=== PATIENT | male | born 1955 | race Caucasian/White ===

== ENCOUNTER → 2018-03-04 | Outpatient (CLI) | payer OTHER | LOC: M LRY 09:48 | DX: S22.32XA Fracture of one rib, left side, initial encounter for closed fracture (principal); R07.81 Pleurodynia; X58.XXXA Exposure to other specified factors, initial encounter; Y92.9 Unspecified place or not applicable | CPT/HCPCS: 71046 ==

== ENCOUNTER → 2018-07-24 | Outpatient (CLI) | payer OTHER ==
--- NOTE | 2018-07-24 14:42 | REP ---
LUMBAR SPINE, FOUR VIEWS: HISTORY: Radiculopathy. There is no acute fracture. There is an old compression fracture at the L5 vertebral body with mild height loss. The lumbar intervertebral discs are decreased in height consistent with disc degeneration. Osteophytes are present throughout the lumbar spine. There is narrowing of the L4-5 and L5-S1 facet joints. There is sclerosis of the L3-4 through L5-S1 facets. There are 3 mm of grade 1 spondylolisthesis of L4 on L5. There is scoliosis convex to the right. IMPRESSION: Degenerative change as described above. Electronically Signed by Charly Cummings MD 07/24/2018 02:52 P
== END ==
LOC: M RAD 12:37
DX: M54.5 Low back pain (principal)

== ENCOUNTER 2019-06-29 11:01 | Emergency (ER) | payer MEDICARE, OTHER ==
[~2019-06-29] VITALS: Ht 175.3 cm; Wt 96.2 kg
[2019-06-29 11:03] VITALS: BP 170/92
[2019-06-29] MEDS ORDERED: METH36TA5 PO (12:23)
[2019-06-29] MEDS ORDERED: SIMV20TA22 PO (12:23)
[2019-06-29] MEDS ORDERED: BASA100I SQ (12:23)
[2019-06-29] MEDS ORDERED: HYDR-3713 PO (12:23)
[2019-06-29] MEDS ORDERED: LISI-538 PO (12:23)
[2019-06-29] MEDS ORDERED: BUPR300T34 PO (12:23)
[2019-06-29] MEDS ORDERED: ARTISOL2 OP (12:23)
[2019-06-29] MEDS ORDERED: VICT18IN2 SQ (12:23)
[2019-06-29] MEDS ORDERED: TRAZ-252 PO (12:23)
[2019-06-29 12:28] LABS: VENOUS PH 7.398 UNITS (7.330-7.430)
[2019-06-29 12:29] LABS: VENOUS HCO3 26.2 MEQ/L (23.0-27.0); VENOUS O2 SATURATION 75.8 % (60.0-80.0); VENOUS PARTIAL PRESSURE CO2 43.4 mmHg (38.0-50.0); VENOUS PARTIAL PRESSURE O2 39.6 mmHg (30.0-50.0); VENOUS STANDARD HCO3 24.7 MEQ/L; VENOUS TOTAL CO2 27.5 MEQ/L (24.0-28.0)
[2019-06-29] MEDS ORDERED: IPRATROPIUM 0.5MG/ALBUTEROL 2.5MG INH SOL UD 3ML (DUONEB)(J7620) NEB SCH (12:30)
[2019-06-29 12:31] LABS: BASO # 0.1 10^3/uL (0.0-0.2); BASO % 1.3 % (0.0-1.0); EOS # 0.2 10^3/uL (0.0-0.5); EOS % 3.7 % (0.0-3.0); HEMATOCRIT 43.6 % (42.0-52.0); HEMOGLOBIN 15.9 g/dl (13.5-17.5); MEAN CORPUSCULAR HEMOGLOBIN 32.4 pg (27.0-33.0); MEAN CORPUSCULAR HGB CONC 36.5 g/dl (32.0-36.5); MONO # 0.6 10^3/uL (0.0-0.8); MONO % 10.3 % (0.0-5.0); NEUTROPHILS # 3.2 10^3/uL (1.5-8.5); NEUTROPHILS % 52.2 % (36.0-66.0); PLATELET COUNT, AUTOMATED 257 10^3/uL (150-450); WHITE BLOOD COUNT 6.2 10^3/uL (4.0-10.0)
[2019-06-29 13:17] LABS: ALBUMIN 3.4 GM/DL (3.2-5.2); ALT/SGPT 40 U/L (12-78); BILIRUBIN,DIRECT < 0.1 MG/DL (0.0-0.2); BILIRUBIN,TOTAL 0.5 MG/DL (0.2-1.0); BLOOD UREA NITROGEN 13 MG/DL (7-18); CALCIUM LEVEL 9.5 MG/DL (8.8-10.2); CARBON DIOXIDE LEVEL 28 MEQ/L (21-32); CHLORIDE LEVEL 96 MEQ/L (98-107); CK-MB VALUE MASS 9.8 NG/ML (<3.6); CPK CREATINE PHOSPHOKINASE 372 U/L (39-308); CREATININE FOR GFR 0.97 MG/DL (0.70-1.30); GLOMERULAR FILTRATION RATE > 60.0 (>49); GLUCOSE, FASTING 424 MG/DL (70-100); MB/CK RELATIVE INDEX 2.63 (< OR =4); NT-PRO BNP 64 PG/ML (<125); POTASSIUM SERUM 4.5 MEQ/L (3.5-5.1); SODIUM LEVEL 133 MEQ/L (136-145); TOTAL PROTEIN 7.6 GM/DL (6.4-8.2); TROPONIN I < 0.02 NG/ML (< 0.10)
[2019-06-29] MEDS ORDERED: HumuLIN R (REGULAR) INSULIN (NovoLIN R) **100U/ML** PER UNIT IV ONE (13:30)
--- NOTE | 2019-06-30 08:03 | ECGEPIP ---
[facility] - ED Test Date: 2019-06-29 Pat Name: LEROY SANCHEZ Department: Room: - Gender: Male Administrative Secretary: ariadna : 1955 Requested By: Sandie Cabrera Order Number: [id number] Reading MD: Sandie Cabrera Measurements Intervals [place] Rate: 75 P: 11 IN: 142 QRS: -25 QRSD: 106 T: 47 QT: 383 QTc: 430 Interpretive Statements SINUS RHYTHM POSSIBLE LEFT ATRIAL ENLARGEMENT BORDERLINE LEFT AXIS DEVIATION No prior Electronically Signed on 06-30-2019 8:03:02 EST by Sandie Cabrera
== END 2019-06-29 14:06 | disposition left against medical advice (07) ==
LOC: M ED 11:01
DX: E16.2 Hypoglycemia, unspecified (principal); R94.31 Abnormal electrocardiogram [ECG] [EKG]; E11.9 Type 2 diabetes mellitus without complications; I10 Essential (primary) hypertension; E78.5 Hyperlipidemia, unspecified; Z88.9 Allergy status to unspecified drugs, medicaments and biological substances; Z79.4 Long term (current) use of insulin; Z79.83 Long term (current) use of bisphosphonates; Z79.899 Other long term (current) drug therapy

== ENCOUNTER 2019-06-29 22:43 | Emergency (ER) | payer MEDICARE ==
[~2019-06-29] VITALS: Ht 175.3 cm; Wt 95.9 kg
[~2019-06-29 22:43] MED LIST: ARTISOL2 OP; BASA100I SQ; BUPR300T34 PO; HYDR-3713 PO; LISI-538 PO; METH36TA5 PO; SIMV20TA22 PO; TRAZ-252 PO; VICT18IN2 SQ
[2019-06-29] MEDS ORDERED: LORazepam 2 MG/ML VIAL (J2060) IV STA (23:28)
[2019-06-29] MEDS ORDERED: NS 500 ML IV ONE (23:30)
[2019-06-29 23:44] LABS: BASO # 0.1 10^3/uL (0.0-0.2); BASO % 1.3 % (0.0-1.0); EOS # 0.2 10^3/uL (0.0-0.5); EOS % 2.4 % (0.0-3.0); HEMATOCRIT 43.5 % (42.0-52.0); HEMOGLOBIN 15.5 g/dl (13.5-17.5); LYMPH # 2.9 10^3/uL (1.5-5.0); LYMPH % 37.9 % (24.0-44.0); MEAN CORPUSCULAR HEMOGLOBIN 32.2 pg (27.0-33.0); MEAN CORPUSCULAR HGB CONC 35.6 g/dl (32.0-36.5); MEAN CORPUSCULAR VOLUME 90.2 fl (80.0-96.0); MONO # 0.9 10^3/uL (0.0-0.8); MONO % 11.2 % (0.0-5.0); NEUTROPHILS # 3.6 10^3/uL (1.5-8.5); NEUTROPHILS % 46.8 % (36.0-66.0); PLATELET COUNT, AUTOMATED 263 10^3/uL (150-450); RED BLOOD COUNT 4.82 10^6/uL (4.30-6.10); WHITE BLOOD COUNT 7.8 10^3/uL (4.0-10.0)
[2019-06-29] MEDS ORDERED: ISOVUE-370 76% 100ML VIAL (Q9967) As Ordered ONE (23:53)
[2019-06-30 00:21] LABS: CK-MB VALUE MASS 13.2 NG/ML (<3.6); CPK CREATINE PHOSPHOKINASE 427 U/L (39-308); MB/CK RELATIVE INDEX 3.09 (< OR =4); NT-PRO BNP 59 PG/ML (<125); THYROXINE (T4) 9.2 UG/DL (4.5-12.0); TROPONIN I < 0.02 NG/ML (< 0.10)
--- NOTE | 2019-06-30 00:57 | REPVR ---
PROCEDURE INFORMATION: Exam: CT Angiography Chest With Contrast Exam date and time: 06/29/2019 11:24 PM Age: 63 years old Clinical indication: Shortness of breath; Additional info: SOB; Bloody sputum TECHNIQUE: Imaging protocol: Computed tomographic angiography of the chest with intravenous contrast. 3D rendering: MIP and/or 3D reconstructed images were created by the technologist. Radiation optimization: All CT scans at this facility use at least one of these dose optimization techniques: automated exposure control; mA and/or kV adjustment per patient size (includes targeted exams where dose is matched to clinical indication); or iterative reconstruction. Contrast material: ISO; Contrast volume: 75 ml; Contrast route: AC; COMPARISON: CR RIBS UNILAT WITHOUT PA CHEST 03/04/2018 9:52 AM FINDINGS: Pulmonary arteries: Suboptimal pulmonary artery contrast opacification limits exam. Aorta: Unremarkable. No aortic aneurysm. No aortic dissection. Lungs: Unremarkable. No consolidation. No masses. Pleural space: Unremarkable. No pneumothorax. No pleural effusion. Heart: Mild coronary artery atherosclerotic disease is present. Normal heart size. Liver: The liver is low attenuation indicating hepatic steatosis. Lymph nodes: Unremarkable. No enlarged lymph nodes. Bones/joints: Old lower thoracic vertebral body compression fracture and multilevel degenerative changes. Soft tissues: Unremarkable. IMPRESSION: 1. Suboptimal pulmonary artery contrast opacification. 2. No acute findings. 3. Coronary artery disease. 4. Hepatic steatosis. Electronically signed by: Alex Harman On 06/30/2019 00:57:17 AM
[2019-06-30 02:49] VITALS: BP 134/85
--- NOTE | 2019-06-30 08:16 | ECGEPIP ---
[facility] - ED Test Date: 2019-06-29 Pat Name: LEROY SANCHEZ Department: Room: - Gender: Male Sales Strategy Manager: : 1955 Requested By: BITA MISTRY Order Number: [id number] Reading MD: Sandie Cabrera Measurements Intervals [place] Rate: 75 P: 12 [place]: 140 QRS: -20 QRSD: 110 T: 44 QT: 386 QTc: 433 Interpretive Statements SINUS RHYTHM POSSIBLE LEFT ATRIAL ENLARGEMENT SIMILAR 06/29/19 Electronically Signed on 06-30-2019 8:15:58 EST by Sandie Cabrera
--- NOTE | 2019-06-30 10:56 | ED PDOC ---
Post-Departure Follow-Up dr marie faxed formal report of cta chest for fu Colton Chase MD Jun 30, 2019 10:56
== END 2019-06-30 02:51 | disposition home or self-care (01) ==
LOC: M ED 22:43
DX: J20.9 Acute bronchitis, unspecified (principal); R73.9 Hyperglycemia, unspecified; I25.10 Atherosclerotic heart disease of native coronary artery without angina pectoris; I28.8 Other diseases of pulmonary vessels; K76.0 Fatty (change of) liver, not elsewhere classified; I10 Essential (primary) hypertension; F33.9 Major depressive disorder, recurrent, unspecified; Z88.9 Allergy status to unspecified drugs, medicaments and biological substances; Z79.4 Long term (current) use of insulin; Z79.84 Long term (current) use of oral hypoglycemic drugs; Z79.899 Other long term (current) drug therapy
CPT/HCPCS: 71275; 80047; 82550; 82553; 83880; 84436; 84443; 84484; 85025; 93005; 96361; 96374; 99284; J2060; Q9967

== ENCOUNTER 2020-12-26 21:02 | Day surgery (SDC) | payer MEDICARE, MEDICAID, OTHER ==
[~2020-12-26] VITALS: Ht 175.3 cm; Wt 87.9 kg
[~2020-12-26 21:02] MED LIST changes: -BUPR300T34 PO; +BUPR300T92 PO; -LISI-538 PO; +LISI20TA33 PO; +VICT18IN2 SC; -VICT18IN2 SQ
[2020-12-26] MEDS ORDERED: HUMA100I5 SC (21:14)
[2020-12-26] MEDS ORDERED: LANTINJ4 SC (21:14)
[2020-12-26 22:56] LABS: BASO % 0.3 % (0.0-1.0); EOS % 0.3 % (0.0-3.0); HEMATOCRIT 44.5 % (42.0-52.0); LYMPH # 1.1 10^3/uL (1.5-5.0); LYMPH % 9.2 % (24.0-44.0); MEAN CORPUSCULAR HEMOGLOBIN 32.6 pg (27.0-33.0); MEAN CORPUSCULAR VOLUME 90.6 fl (80.0-96.0); MONO # 1.2 10^3/uL (0.0-0.8); NEUTROPHILS # 9.6 10^3/uL (1.5-8.5); NEUTROPHILS % 79.5 % (36.0-66.0); PLATELET COUNT, AUTOMATED 206 10^3/uL (150-450); RED BLOOD COUNT 4.91 10^6/uL (4.30-6.10)
[2020-12-26] MEDS ORDERED: NS 1,000 ML IV ONE (23:05)
[2020-12-26] MEDS ORDERED: MORPHINE 4 MG/ML 1ML VIAL/SYRINGE (J2270) IV ONE (23:05)
[2020-12-26 23:19] LABS: ALBUMIN 3.3 GM/DL (3.2-5.2); BILIRUBIN,DIRECT 0.3 MG/DL (0.0-0.2); BILIRUBIN,TOTAL 1.5 MG/DL (0.2-1.0); TOTAL PROTEIN 6.7 GM/DL (6.4-8.2)
[2020-12-27] MEDS ORDERED: ISOVUE-370 76% 100ML VIAL As Ordered ONE (00:44)
--- NOTE | 2020-12-27 02:31 | REPVR ---
PROCEDURE INFORMATION: Exam: CT Abdomen And Pelvis With Contrast Exam date and time: 12/26/2020 11:02 PM Age: 65 years old Clinical indication: Abdominal pain; Localized; Lower; Additional info: Lower abd pain, llq to rlq TECHNIQUE: Imaging protocol: Computed tomography of the abdomen and pelvis with contrast. Radiation optimization: All CT scans at this facility use at least one of these dose optimization techniques: automated exposure control; mA and/or kV adjustment per patient size (includes targeted exams where dose is matched to clinical indication); or iterative reconstruction. Contrast material: ISO; Contrast volume: 100 ml; Contrast route: INTRAVENOUS (IV); COMPARISON: CR Spine. Lumbosacral, complete 07/24/2018 1:14 PM FINDINGS: LUNG BASES: Mild bibasal and dependent atelectasis. VASCULAR: Visualized cardiac size is at the upper end of normal. No abdominoaortic aneurysm, dissection, or retroperitoneal hematoma. There is calcified and noncalcified atherosclerotic plaque. PERITONEAL : No free air or free fluid. GI: No hiatal hernia. The distal esophagus and stomach are not sufficiently distended to evaluate wall thickening. Non-specific fluid-filled loops of small bowel seen. No appearance of small bowel obstruction. Small nonspecific mesenteric lymph nodes are noted. Scattered fecal material and gas within portions of the colon. No evidence of acute diverticulitis. There is focal wall thickening at the cecal apex. The appendix is slightly dilated above normal limits at 12.8 mm. There is mild appendiceal wall thickening and mucosal enhancement. A 7 mm calcification is seen at the appendiceal orifice. There is periappendiceal inflammatory stranding and adjacent conal fascial thickening or trace amount of fluid. Findings are consistent with acute appendicitis. No evidence of perforation/free air or drainable abscess. HEPATOBILIARY, PANCREAS, SPLEEN: Hepatic length is 18.9 cm. There is slight heterogeneity of hepatic parenchyma. There is evidence of hepatic steatosis. Distended gallbladder measuring 12.2 cm in length. Clinical correlation is advised. No calcified gallstones or biliary dilation seen. If there is suspicion for acute or chronic cholecystitis, consider ultrasound or HIDA scan/CCK respectively. No pancreatic inflammation. Spleen not enlarged. ADRENALS, KIDNEYS, BLADDER, RETROPERITONEAL: Adrenals within normal limits. No hydronephrosis. Symmetric renal enhancement. Mild nonspecific perinephric stranding. Hypodense renal parenchymal and parapelvic lesions noted, too small to further characterize but likely cysts. Consistent with the [employer]'s Incidental Findings Committee white paper (J Am Alan Radiol 2018): Any incidental cystic renal lesion classified in this report as too small to characterize or simple appearing is likely a benign cyst. No follow-up imaging is neccesary for these lesions per consensus recommendations based on imaging criteria if there is average risk of renal malignancy. The urinary bladder appears slightly thick-walled anteriorly. This could be artifactual. Clinical correlation and follow-up is advised. Slightly heterogeneous mildly enlarged prostate impressing along the base of the urinary bladder. Clinical follow-up is advised. Penile calcifications incidentally noted. No retroperitoneal lymphadenopathy by size criteria. MUSCULOSKELETAL: Tiny fat containing umbilical hernia. Fat containing inguinal hernias. Degenerative changes of the spine. Moderate central compression fracture deformity at L5 appears slightly greater than on the prior study. Clinical correlation with any acute symptoms. There is mild scoliosis. Degenerative changes of the pelvis noted. IMPRESSION: Findings are consistent with mild uncomplicated acute appendicitis. This is discussed above in detail. Distended gallbladder but no other CT evidence for acute cholecystitis. Findings discussed above. Mildly enlarged prostate. Clinical follow-up is advised. Other incidental findings discussed above. Electronically signed by: Burak Segovia On 12/27/2020 02:31:13 AM
[2020-12-27] MEDS ORDERED: PIPERACILLIN/TAZOBACTAM SOD 3.375 GM in D5W MINI-BAG PLUS 50 ML IV ONE (02:40)
[2020-12-27] MEDS ORDERED: B-COTAB4 PO (02:48)
[2020-12-27] MEDS ORDERED: POTA99TA14 PO (02:48)
[2020-12-27] MEDS ORDERED: POLY1.4S OU (02:48)
[2020-12-27] MEDS ORDERED: MUPI2OI EXT (02:48)
[2020-12-27] MEDS ORDERED: ERGO500029 PO (02:48)
[2020-12-27] MEDS ORDERED: JUBL1SOL EXT (02:48)
[2020-12-27] MEDS ORDERED: MELA5TAB47 PO (02:48)
[2020-12-27 03:21] LABS: RSV AMPLIFICATION NEGATIVE (NEGATIVE)
[2020-12-27] MEDS ORDERED: KETOROLAC 30 MG/ML 1ML VIAL IV PRN (03:40)
[2020-12-27] MEDS ORDERED: GLUCOSE 4GM CHEW TABLET PO PRN (03:40)
[2020-12-27] MEDS ORDERED: ACETAMINOPHEN TAB 650MG DOSE (2X325MG) PO PRN (03:40)
[2020-12-27] MEDS ORDERED: ONDANSETRON 4MG/2ML VIAL IV PRN (03:40)
[2020-12-27] MEDS ORDERED: MORPHINE 2 MG/ML 1ML VIAL (J2270) IV PRN (03:40)
[2020-12-27] MEDS ORDERED: GLUCAGON INJ 1MG VIAL SC PRN (03:40)
[2020-12-27] MEDS ORDERED: DEXTROSE 50% 50 ML SYRINGE IV PRN (03:40)
[2020-12-27] MEDS: KCL 20MEQ IN D5/0.45NS 1000ML 1,000 ML IV SCH ×2 (05:27→14:23)
[2020-12-27] MEDS: HumaLOG INSULIN (NovoLOG) PER UNIT SC SCH ×2 (07:30→12:35)
[2020-12-27] MEDS: AMPICILLIN SOD/SULBACTAM SOD 3 GM in D5W MINI-BAG PLUS 100 ML IV SCH ×2 (08:42→15:34)
[2020-12-27 08:56] VITALS: BP 152/86
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
[2020-12-27] MEDS ORDERED: HOME MED LIST COMPLETE! XX SCH (13:00)
[2020-12-27 14:50] VITALS: BP 125/76
[2020-12-27] MEDS ORDERED: LIDOCAINE 1% SDV 30ML VIAL As Ordered ONE (16:36)
[2020-12-27] MEDS ORDERED: BUPIVACAINE HCL 0.25% 30ML VIAL As Ordered ONE (16:37)
--- NOTE | 2020-12-27 17:19 | IPNPDOC ---
Text Note Date of Service The patient was seen on 12/27/20. NOTE I was informed that the patient wishes to leave AMA and could not wait for the operating room so I spoke to the patient and informed him that he is next in line for the surgery. Unfortunately there has been a few add on surgeries in the schedule and OR has been busy today. Patient is determined to go home,e at and feed his cats. I discussed with him the possible repercussions of not properly treating his appendicitis including worsening, sepsis, abscess and even . Patient wishes to proceed with AMA unfortunately. VS,Fishbone, I+O VS, Fishbone, I+O Laboratory Tests 12/26/20 22:44 Vital Signs Date Time Temp Pulse Resp B/P (MAP) Pulse Ox O2 Delivery O2 Flow Rate FiO2 12/27/20 14:50 98.0 73 16 125/76 (92) 95 Room Air I&O- Last 24 Hours up to 6 AM 12/27/20 06:00 Intake Total 1000 ml Balance 1000 ml YASH DEWITT MD Dec 27, 2020 17:19
== END 2020-12-27 17:15 | disposition left against medical advice (07) ==
LOC: M ED 21:02 → M SDC 21:03 → UNDOADMIN 12-27 03:36 → M ED INP 12-27 03:36 → M SDC 12-27 03:40 → ENRESERV 12-27 13:52 → M SDC 12-27 14:50 → M MSPAV 12-27 14:50 → M ED INP 12-27 14:50 → M MSPAV 12-27 14:50 → M SDC 12-27 17:15 → UNDODISIN 12-27 17:15
PROVIDERS: ATTEND Surgery
DX: K35.80 Unspecified acute appendicitis (principal); Z53.29 Procedure and treatment not carried out because of patient's decision for other reasons; I10 Essential (primary) hypertension; E11.40 Type 2 diabetes mellitus with diabetic neuropathy, unspecified; E78.5 Hyperlipidemia, unspecified; K21.9 Gastro-esophageal reflux disease without esophagitis; Z91.19 Patient's noncompliance with other medical treatment and regimen; G47.30 Sleep apnea, unspecified; F32.9 Major depressive disorder, single episode, unspecified; F41.9 Anxiety disorder, unspecified; F43.10 Post-traumatic stress disorder, unspecified; F17.220 Nicotine dependence, chewing tobacco, uncomplicated; Z79.899 Other long term (current) drug therapy; Z88.8 Allergy status to other drugs, medicaments and biological substances
CPT/HCPCS: 74177; 80047; 80076; 81001; 83605; 83690; 85025; 87631; 96361; 96365; 96367; 96375; 96376; 99285; J1885; J2270; J2543; Q9967

== ENCOUNTER 2023-02-10 08:48 | Day surgery (SDC) | payer MEDICARE ==
[~2023-02-10] VITALS: Ht 175.3 cm; Wt 87.9 kg
[~2023-02-10 08:48] MED LIST changes: +ALPH600C PO; +B-COTAB4 PO; +BSS IRRIG/VANCO(10MG)/TOBRA(5MG)/EPINEPH(1:1000-0.5CC)500ML BAG-ORONLY IR ONE; +CEFUROXIME 1MG/0.1ML INTRACAMERAL INJ As Ordered ONE; +CYCLOPENTOLATE 1% OPHTH SOLN 2ML BTL OD SCH; +ERGO500029 PO; +GABA-282 PO; +HAIR1CHW PO; +HUMA100I5 SC; +JUBL1SOL EXT; +LANTINJ4 SC; +LIDOCAINE 1% SDV 5ML VIAL As Ordered ONE; +LIDOCAINE 3.5 % 1ML OPHTH TOPICAL GEL OU ONE; +MELA5TAB47 PO; +MIDAZOLAM INJ 2MG/2ML VIAL As Ordered ONE; +MUPI2OI EXT; +NAPR220C14 PO; +OFLOXACIN 0.3 % (OCUFLOX) OPTH SOL 5ML OD ONE; +PHENYLEPHRINE 10% OPHTH SOL 5ML OD PRN; +PHENYLEPHRINE 2.5% OPHTH SOL 2ML OD SCH; +POLY1.4S OU; +POTA99TA14 PO; +SIMV40TA20 PO; +THERTAB52 PO; +TROPICAMIDE 1% OPHTH SOLN 15ML OD SCH; +[UNRECOGNIZED DRUG - OTHER]; +fentaNYL 100 MCG/2 ML INJECTION As Ordered ONE
[2023-02-10 11:33] VITALS: BP 139/80; TEMP 96.8; O2SAT 98
== END 2023-02-10 12:00 | disposition home or self-care (01) ==
LOC: M SDC 08:48
PROVIDERS: ATTEND Ophthalmology
DX: H25.11 Age-related nuclear cataract, right eye (principal); I10 Essential (primary) hypertension; E11.9 Type 2 diabetes mellitus without complications; E78.5 Hyperlipidemia, unspecified; F17.220 Nicotine dependence, chewing tobacco, uncomplicated; F41.9 Anxiety disorder, unspecified; F32.A Depression, unspecified; F43.10 Post-traumatic stress disorder, unspecified; Z88.8 Allergy status to other drugs, medicaments and biological substances; G47.33 Obstructive sleep apnea (adult) (pediatric); Z79.4 Long term (current) use of insulin; Z79.899 Other long term (current) drug therapy
CPT/HCPCS: 66984; J0697; J2250; J3010; V2632

== ENCOUNTER → 2023-02-17 | Day surgery (SDC) | payer MEDICARE ==
[~2023-02-17] VITALS: Ht 175.3 cm; Wt 88.6 kg
[~2023-02-17] MED LIST changes: -CYCLOPENTOLATE 1% OPHTH SOLN 2ML BTL OD SCH; +CYCLOPENTOLATE 1% OPHTH SOLN 2ML BTL OS SCH; -OFLOXACIN 0.3 % (OCUFLOX) OPTH SOL 5ML OD ONE; +OFLOXACIN 0.3 % (OCUFLOX) OPTH SOL 5ML OS ONE; -PHENYLEPHRINE 10% OPHTH SOL 5ML OD PRN; +PHENYLEPHRINE 10% OPHTH SOL 5ML OS PRN; -PHENYLEPHRINE 2.5% OPHTH SOL 2ML OD SCH; +PHENYLEPHRINE 2.5% OPHTH SOL 2ML OS SCH; -TROPICAMIDE 1% OPHTH SOLN 15ML OD SCH; +TROPICAMIDE 1% OPHTH SOLN 15ML OS SCH
[2023-02-17 13:55] VITALS: BP 169/90; TEMP 97.8; O2SAT 98
== END | disposition home or self-care (01) ==
LOC: M SDC 11:37
PROVIDERS: ATTEND Ophthalmology
DX: H25.12 Age-related nuclear cataract, left eye (principal); I10 Essential (primary) hypertension; E78.5 Hyperlipidemia, unspecified; E11.9 Type 2 diabetes mellitus without complications; K59.00 Constipation, unspecified; M19.90 Unspecified osteoarthritis, unspecified site; M54.9 Dorsalgia, unspecified; F41.9 Anxiety disorder, unspecified; F32.A Depression, unspecified; F43.10 Post-traumatic stress disorder, unspecified; G47.30 Sleep apnea, unspecified; Z88.8 Allergy status to other drugs, medicaments and biological substances; Z79.4 Long term (current) use of insulin; Z79.899 Other long term (current) drug therapy
CPT/HCPCS: 66984; J0697; J2250; J3010; V2632

== ENCOUNTER → 2024-01-02 | Outpatient (REF) | payer MEDICARE, MEDICAID ==
[~2024-01-02] MED LIST changes: -B-COTAB4 PO; -BSS IRRIG/VANCO(10MG)/TOBRA(5MG)/EPINEPH(1:1000-0.5CC)500ML BAG-ORONLY IR ONE; +BUPR-597 PO; -BUPR300T92 PO; -CEFUROXIME 1MG/0.1ML INTRACAMERAL INJ As Ordered ONE; -CYCLOPENTOLATE 1% OPHTH SOLN 2ML BTL OS SCH; -LIDOCAINE 1% SDV 5ML VIAL As Ordered ONE; -LIDOCAINE 3.5 % 1ML OPHTH TOPICAL GEL OU ONE; -MIDAZOLAM INJ 2MG/2ML VIAL As Ordered ONE; -OFLOXACIN 0.3 % (OCUFLOX) OPTH SOL 5ML OS ONE; -PHENYLEPHRINE 10% OPHTH SOL 5ML OS PRN; -PHENYLEPHRINE 2.5% OPHTH SOL 2ML OS SCH; -TROPICAMIDE 1% OPHTH SOLN 15ML OS SCH; +VITA1TAB78 PO; -fentaNYL 100 MCG/2 ML INJECTION As Ordered ONE
[2024-01-02 18:16] LABS: ALBUMIN 3.4 G/DL (3.2-5.2); BLOOD UREA NITROGEN 17 MG/DL (9-23); CALCIUM LEVEL 9.2 MG/DL (8.3-10.6); CARBON DIOXIDE LEVEL 28 MMOL/L (20-31); CHLORIDE LEVEL 101 MMOL/L (98-107); CREATININE FOR GFR 0.66 MG/DL (0.70-1.30); GLOMERULAR FILTRATION RATE > 60.0 (>49); GLUCOSE, FASTING 291 MG/DL (74-106); PHOSPHORUS LEVEL 2.6 MG/DL (2.4-5.1); POTASSIUM SERUM 4.3 MMOL/L (3.5-5.1); SODIUM LEVEL 136 MMOL/L (136-145)
== END ==
LOC: M LABWUC 16:46 → M LAB REF 16:46
PROVIDERS: ATTEND Physician Assistant
DX: I10 Essential (primary) hypertension (principal); U07.1 COVID-19; Z20.828 Contact with and (suspected) exposure to other viral communicable diseases

== ENCOUNTER → 2024-08-31 | Outpatient (REF) | payer MEDICARE, MEDICAID ==
[~2024-08-31] MED LIST changes: +DOXY100C3 PO; +GABA-1172 PO; -GABA-282 PO; +PANT40TA29 PO; +SILV40CR TOP; +TIRZ2.5P SQ
[2024-08-31 18:15] LABS: HEMOGLOBIN A1c 9.6 % (4.0-6.0)
== END ==
LOC: M SFHCWOUN 16:29
PROVIDERS: ATTEND Physician Assistant
DX: E11.621 Type 2 diabetes mellitus with foot ulcer (principal)

== ENCOUNTER 2024-09-03 20:48 | Inpatient (IN) | payer MEDICAID, MEDICARE ==
[~2024-09-03] VITALS: Ht 175.3 cm; Wt 84.5 kg
[~2024-09-03 20:48] MED LIST changes: -DOXY100C3 PO; -PANT40TA29 PO; -SILV40CR TOP; -TIRZ2.5P SQ
[2024-09-04] VITALS (7 sets, daily range): BP systolic 108–117; BP diastolic 59–69; TEMP 97.2–97.9; O2SAT 97–100
[2024-09-04 03:57] LABS: BASO % 0.1 % (0.0-1.0); HEMATOCRIT 33.1 % (42.0-52.0); HEMOGLOBIN 11.6 g/dl (13.5-17.5); LYMPH # 1.6 10^3/uL (1.5-5.0); LYMPH % 7.3 % (24.0-44.0); MEAN CORPUSCULAR HEMOGLOBIN 31.2 pg (27.0-33.0); MONO # 1.5 10^3/uL (0.0-0.8); MONO % 7.2 % (2.0-8.0); NEUTROPHILS % 84.6 % (36.0-66.0); PLATELET COUNT, AUTOMATED 308 10^3/uL (150-450); RED BLOOD COUNT 3.72 10^6/uL (4.30-6.10); WHITE BLOOD COUNT 21.3 10^3/uL (4.0-10.0)
[2024-09-04] MEDS ORDERED: ISOVUE-370 76% 100ML VIAL As Ordered ONE (04:11)
[2024-09-04 04:12] LABS: BLOOD UREA NITROGEN 29 MG/DL (9-23); C REACTIVE PROTEIN QUANTITATIV 22.66 MG/DL (<1.0); CALCIUM LEVEL 8.6 MG/DL (8.3-10.6); CARBON DIOXIDE LEVEL 24 MMOL/L (20-31); CHLORIDE LEVEL 93 MMOL/L (98-107); GLOMERULAR FILTRATION RATE > 60.0 (>42); GLUCOSE, FASTING 365 MG/DL (74-106); POTASSIUM SERUM 4.8 MMOL/L (3.5-5.1); SODIUM LEVEL 127 MMOL/L (136-145)
[2024-09-04 04:21] LABS: ERYTHROCYTE SEDIMENTATION RATE 81 mm/hr (0-20)
[2024-09-04 04:22] LABS: PROCALCITONIN 0.73 ng/ml
[2024-09-04 04:24] LABS: INR 1.26; PARTIAL THROMBOPLASTIN TIME 38.1 SECONDS (24.8-34.2); PROTHROMBIN TIME 16.1 SECONDS (12.5-14.5)
[2024-09-04] MEDS ORDERED: VANCOMYCIN HCL 1,500 MG in IV FLUID PLACE HOLDER 1 EA IV ONE (04:50)
[2024-09-04] MEDS: PIPERACILLIN/TAZOBACTAM SOD 4.5 GM in DEXTROSE 5% (D5W) ADV/MINI-BAG 50 ML IV ONE (05:37)
[2024-09-04] MEDS: VANCOMYCIN HCL 1,500 MG, VIAL MATE ADAPTER 1 EACH in NS 500 ML IV ONE (06:21)
[2024-09-04] MEDS: HumuLIN R (REGULAR) INSULIN (NovoLIN R) **100U/ML** PER UNIT IV ONE (08:00)
[2024-09-04] MEDS ORDERED: fentaNYL 250 MCG/5 ML INJECTION As Ordered ONE (08:01)
[2024-09-04] MEDS ORDERED: propofoL 200 MG/20 ML VIAL As Ordered ONE (08:02)
[2024-09-04] MEDS ORDERED: MIDAZOLAM INJ 2MG/2ML VIAL As Ordered ONE (08:02)
[2024-09-04] MEDS ORDERED: ROCURONIUM BROMIDE 50MG/5ML VIAL As Ordered ONE (08:02)
[2024-09-04] MEDS ORDERED: LIDOCAINE 2% 100MG/5ML SDV (FOR ANES.) As Ordered ONE (08:02)
[2024-09-04] MEDS: NS (Normal Saline) 0.9% 1,000 ML IV ONE (08:44)
[2024-09-04] MEDS ORDERED: diphenhydrAMINE 50MG/ML VIAL IV PRN (08:50)
[2024-09-04] MEDS ORDERED: ONDANSETRON 4MG 2ML VIAL IV PRN (08:50)
[2024-09-04] MEDS ORDERED: fentaNYL 100 MCG/2 ML INJECTION IV PRN (08:50)
[2024-09-04] MEDS ORDERED: oxyCODONE 5MG TAB PO PRN (08:50)
[2024-09-04] MEDS ORDERED: GLUCOSE 4 GM CHEW PO PRN (08:50)
[2024-09-04] MEDS ORDERED: GLUCAGON INJ 1MG VIAL SC PRN (08:50)
[2024-09-04] MEDS: CLINDAMYCIN 900MG/50ML PREMIX BAG As Ordered ONE (09:29)
[2024-09-04] MEDS ORDERED: ACETAMINOPHEN 1000MG/100ML IV BAG As Ordered ONE (09:41)
[2024-09-04] MEDS ORDERED: ONDANSETRON 4MG 2ML VIAL As Ordered ONE (09:42)
[2024-09-04] MEDS ORDERED: KETOROLAC 60MG 2ML VIAL As Ordered ONE (10:01)
[2024-09-04] MEDS ORDERED: SUGAMMADEX SODIUM 500 MG/5 ML VIAL (BRIDION) As Ordered ONE (10:01)
[2024-09-04] MEDS: INSULIN LISPRO (NovoLOG) PER UNIT SC PRN (10:29)
[2024-09-04] MEDS: HYDROMORPHONE HCL 0.5 MG/ 0.5 ML SYRINGE IV PRN (10:48)
[2024-09-04] MEDS: ALBUTEROL SULFATE 2.5MG/0.5ML INH NEB SOLN INH ONE (12:01)
[2024-09-04] MEDS ORDERED: VANCOMYCIN HCL 1,000 MG, VIAL MATE ADAPTER 1 EACH in NS 250 ML IV SCH (12:55)
[2024-09-04 14:03] LABS: HEMATOCRIT 29.1 % (42.0-52.0); HEMOGLOBIN 10.3 g/dl (13.5-17.5); MEAN CORPUSCULAR HEMOGLOBIN 31.2 pg (27.0-33.0); MEAN CORPUSCULAR HGB CONC 35.4 g/dl (32.0-36.5); MEAN CORPUSCULAR VOLUME 88.2 fl (80.0-96.0); PLATELET COUNT, AUTOMATED 256 10^3/uL (150-450); WHITE BLOOD COUNT 15.9 10^3/uL (4.0-10.0)
[2024-09-04] MEDS: PIPERACILLIN/TAZOBACTAM SOD 4.5 GM in DEXTROSE 5% (D5W) ADV/MINI-BAG 50 ML IV SCH (14:22)
[2024-09-04 14:28] LABS: BLOOD UREA NITROGEN 27 MG/DL (9-23); CARBON DIOXIDE LEVEL 26 MMOL/L (20-31); CHLORIDE LEVEL 99 MMOL/L (98-107); CREATININE FOR GFR 0.85 MG/DL (0.70-1.30); GLOMERULAR FILTRATION RATE > 60.0 (>42); GLUCOSE, FASTING 223 MG/DL (74-106); POTASSIUM SERUM 4.8 MMOL/L (3.5-5.1); SODIUM LEVEL 130 MMOL/L (136-145)
[2024-09-04] MEDS ORDERED: DOXY100C3 PO (15:02)
[2024-09-04] MEDS ORDERED: SILV40CR TOP (15:02)
[2024-09-04] MEDS ORDERED: PANT40TA29 PO (15:02)
[2024-09-04] MEDS ORDERED: TIRZ2.5P SQ (15:02)
[2024-09-04] MEDS ORDERED: HOME MED LIST COMPLETE! XX SCH (15:15)
[2024-09-04] MEDS: VANCOMYCIN HCL 750 MG, VIAL MATE ADAPTER 1 EACH in NS 250 ML IV SCH (15:27)
[2024-09-04] MEDS: INSULIN LISPRO (NovoLOG) PER UNIT SC SCH ×2 (17:22→21:21)
[2024-09-04] MEDS ORDERED: SENNA 8.6 MG TAB (SENOKOT) PO PRN (17:30)
[2024-09-04] MEDS ORDERED: MIRALAX *UNIT DOSE* 17GM PACKET PO PRN (17:30)
[2024-09-04] MEDS: LEVEMIR (INSULIN DETEMIR) 1 UNITS/0.01ML SC SCH (21:21)
[2024-09-04] MEDS: SIMVASTATIN 40 MG TAB PO SCH (21:21)
[2024-09-05 00:10] VITALS: BP 124/67; TEMP 97.3; O2SAT 97
[2024-09-05 04:10] VITALS: BP 120/67; TEMP 97.3; O2SAT 96
[2024-09-05 07:07] LABS: HEMATOCRIT 28.9 % (42.0-52.0); MEAN CORPUSCULAR HEMOGLOBIN 30.5 pg (27.0-33.0); MEAN CORPUSCULAR HGB CONC 34.6 g/dl (32.0-36.5); MEAN CORPUSCULAR VOLUME 88.1 fl (80.0-96.0); PLATELET COUNT, AUTOMATED 285 10^3/uL (150-450); RED BLOOD COUNT 3.28 10^6/uL (4.30-6.10); WHITE BLOOD COUNT 11.5 10^3/uL (4.0-10.0)
[2024-09-05 07:34] LABS: BLOOD UREA NITROGEN 27 MG/DL (9-23); CARBON DIOXIDE LEVEL 27 MMOL/L (20-31); CHLORIDE LEVEL 98 MMOL/L (98-107); GLOMERULAR FILTRATION RATE > 60.0 (>42); GLUCOSE, FASTING 311 MG/DL (74-106); POTASSIUM SERUM 4.6 MMOL/L (3.5-5.1); SODIUM LEVEL 132 MMOL/L (136-145)
[2024-09-05 08:00] VITALS: BP 121/68; TEMP 97.7; O2SAT 98
[2024-09-05] MEDS: GABAPENTIN 300 MG CAP PO SCH (08:27)
[2024-09-05] MEDS: PANTOPRAZOLE 40MG TAB (PROTONIX) PO SCH (08:27)
[2024-09-05 12:00] VITALS: BP 120/68; TEMP 97.2; O2SAT 93
[2024-09-05 16:00] VITALS: BP 123/68; TEMP 97.7; O2SAT 97
[2024-09-05] MEDS: ACETAMINOPHEN 500 MG TAB PO PRN (17:19)
[2024-09-05 19:54] VITALS: BP 121/67; TEMP 98; O2SAT 96
[2024-09-06] VITALS (9 sets, daily range): BP systolic 123–141; BP diastolic 66–88; TEMP 97.5–98.2; O2SAT 88–98
[2024-09-06 07:43] LABS: HEMATOCRIT 33.1 % (42.0-52.0); HEMOGLOBIN 11.2 g/dl (13.5-17.5); MEAN CORPUSCULAR HEMOGLOBIN 31.2 pg (27.0-33.0); MEAN CORPUSCULAR HGB CONC 33.8 g/dl (32.0-36.5); MEAN CORPUSCULAR VOLUME 92.2 fl (80.0-96.0); PLATELET COUNT, AUTOMATED 303 10^3/uL (150-450); RED BLOOD COUNT 3.59 10^6/uL (4.30-6.10); WHITE BLOOD COUNT 8.9 10^3/uL (4.0-10.0)
[2024-09-06 08:07] LABS: BLOOD UREA NITROGEN 19 MG/DL (9-23); C REACTIVE PROTEIN QUANTITATIV 6.15 MG/DL (<1.0); CALCIUM LEVEL 7.7 MG/DL (8.3-10.6); CARBON DIOXIDE LEVEL 26 MMOL/L (20-31); CHLORIDE LEVEL 105 MMOL/L (98-107); GLOMERULAR FILTRATION RATE > 60.0 (>42); GLUCOSE, FASTING 158 MG/DL (74-106); POTASSIUM SERUM 4.7 MMOL/L (3.5-5.1); SODIUM LEVEL 138 MMOL/L (136-145)
[2024-09-06] MEDS: LEVEMIR (INSULIN DETEMIR) 1 UNITS/0.01ML SC ONE (11:26)
[2024-09-06] MEDS ORDERED: LanTUS (INSULIN GLARGINE INJ) 1 UNITS/0.01 ML SC SCH (21:00)
[2024-09-06] MEDS ORDERED: LEVEMIR (INSULIN DETEMIR) 1 UNITS/0.01ML SC SCH (21:00)
[2024-09-07] VITALS (12 sets, daily range): BP systolic 136–156; BP diastolic 81–88; TEMP 96.8–97.7; O2SAT 88–97
[2024-09-07 05:56] LABS: HEMATOCRIT 32.2 % (42.0-52.0); HEMOGLOBIN 10.7 g/dl (13.5-17.5); MEAN CORPUSCULAR HEMOGLOBIN 30.2 pg (27.0-33.0); MEAN CORPUSCULAR HGB CONC 33.2 g/dl (32.0-36.5); PLATELET COUNT, AUTOMATED 345 10^3/uL (150-450); RED BLOOD COUNT 3.54 10^6/uL (4.30-6.10)
[2024-09-07 06:29] LABS: BLOOD UREA NITROGEN 14 MG/DL (9-23); C REACTIVE PROTEIN QUANTITATIV 3.57 MG/DL (<1.0); CALCIUM LEVEL 7.5 MG/DL (8.3-10.6); CARBON DIOXIDE LEVEL 28 MMOL/L (20-31); CHLORIDE LEVEL 103 MMOL/L (98-107); CREATININE FOR GFR 0.71 MG/DL (0.70-1.30); GLOMERULAR FILTRATION RATE > 60.0 (>42); GLUCOSE, FASTING 310 MG/DL (74-106); POTASSIUM SERUM 4.6 MMOL/L (3.5-5.1); SODIUM LEVEL 138 MMOL/L (136-145)
[2024-09-07] MEDS: LanTUS (INSULIN GLARGINE INJ) 1 UNITS/0.01 ML SC SCH (09:29)
[2024-09-08] VITALS (9 sets, daily range): BP systolic 133–156; BP diastolic 66–97; TEMP 97.3–97.9; O2SAT 94–98
[2024-09-08 07:29] LABS: HEMATOCRIT 33.2 % (42.0-52.0); HEMOGLOBIN 11.3 g/dl (13.5-17.5); MEAN CORPUSCULAR HEMOGLOBIN 31.6 pg (27.0-33.0); MEAN CORPUSCULAR VOLUME 92.7 fl (80.0-96.0); PLATELET COUNT, AUTOMATED 356 10^3/uL (150-450); RED BLOOD COUNT 3.58 10^6/uL (4.30-6.10)
[2024-09-08 08:02] LABS: BLOOD UREA NITROGEN 15 MG/DL (9-23); C REACTIVE PROTEIN QUANTITATIV 2.24 MG/DL (<1.0); CALCIUM LEVEL 7.8 MG/DL (8.3-10.6); CARBON DIOXIDE LEVEL 27 MMOL/L (20-31); CHLORIDE LEVEL 104 MMOL/L (98-107); CREATININE FOR GFR 0.65 MG/DL (0.70-1.30); GLOMERULAR FILTRATION RATE > 60.0 (>42); GLUCOSE, FASTING 340 MG/DL (74-106); POTASSIUM SERUM 4.7 MMOL/L (3.5-5.1); SODIUM LEVEL 139 MMOL/L (136-145)
[2024-09-08] MEDS: BUPivacaine LIPOSOME/PF 266MG 20ML VIAL (13.3MG/ML)(EXPAREL) As Ordered ONE (16:36)
[2024-09-08] MEDS ORDERED: fentaNYL 100 MCG/2 ML INJECTION As Ordered ONE (16:42)
[2024-09-08] MEDS: TRANEXAMIC ACID 100 MG/ML 10ML VIAL As Ordered ONE (17:20)
[2024-09-08] MEDS ORDERED: HYDROMORPHONE HCL 0.5 MG/ 0.5 ML SYRINGE IV PRN (20:05)
[2024-09-08] MEDS ORDERED: oxyCODONE 5MG TAB PO PRN (20:05)
[2024-09-08] MEDS ORDERED: ONDANSETRON 4MG 2ML VIAL IV PRN (20:05)
[2024-09-08] MEDS ORDERED: fentaNYL 100 MCG/2 ML INJECTION IV PRN (20:05)
[2024-09-08] MEDS: LR 1,000 ML IV SCH ×2 (21:46→21:55)
[2024-09-08] MEDS: oxyCODONE 5MG TAB PO PRN (21:53)
[2024-09-09] VITALS (9 sets, daily range): BP systolic 129–144; BP diastolic 69–83; TEMP 97.5–98.1; O2SAT 92–98
[2024-09-09 07:31] LABS: HEMATOCRIT 31.6 % (42.0-52.0); HEMOGLOBIN 10.5 g/dl (13.5-17.5); MEAN CORPUSCULAR HGB CONC 33.2 g/dl (32.0-36.5); MEAN CORPUSCULAR VOLUME 93.2 fl (80.0-96.0); PLATELET COUNT, AUTOMATED 360 10^3/uL (150-450); RED BLOOD COUNT 3.39 10^6/uL (4.30-6.10); WHITE BLOOD COUNT 16.4 10^3/uL (4.0-10.0)
[2024-09-09 07:59] LABS: BLOOD UREA NITROGEN 18 MG/DL (9-23); C REACTIVE PROTEIN QUANTITATIV 1.67 MG/DL (<1.0); CALCIUM LEVEL 7.8 MG/DL (8.3-10.6); CARBON DIOXIDE LEVEL 27 MMOL/L (20-31); CHLORIDE LEVEL 105 MMOL/L (98-107); CREATININE FOR GFR 0.64 MG/DL (0.70-1.30); GLOMERULAR FILTRATION RATE > 60.0 (>42); GLUCOSE, FASTING 354 MG/DL (74-106); POTASSIUM SERUM 4.6 MMOL/L (3.5-5.1); SODIUM LEVEL 138 MMOL/L (136-145)
[2024-09-09] MEDS: ENOXAPARIN 40MG/0.4ML SYRINGE (J1650 PER 10MG) SC SCH (21:39)
[2024-09-10] VITALS (8 sets, daily range): BP systolic 120–153; BP diastolic 64–96; TEMP 97.3–98.1; O2SAT 85–95
[2024-09-10] MEDS: GABAPENTIN 300 MG CAP PO SCH (01:56)
[2024-09-10] MEDS: METHOCARBAMOL 1,000 MG/10 ML VIAL IV ONE (02:01)
[2024-09-10 06:29] LABS: HEMATOCRIT 30.3 % (42.0-52.0); HEMOGLOBIN 9.9 g/dl (13.5-17.5); MEAN CORPUSCULAR HGB CONC 32.7 g/dl (32.0-36.5); PLATELET COUNT, AUTOMATED 330 10^3/uL (150-450); RED BLOOD COUNT 3.19 10^6/uL (4.30-6.10); WHITE BLOOD COUNT 13.6 10^3/uL (4.0-10.0)
[2024-09-10 06:48] LABS: BLOOD UREA NITROGEN 18 MG/DL (9-23); CALCIUM LEVEL 7.7 MG/DL (8.3-10.6); CARBON DIOXIDE LEVEL 26 MMOL/L (20-31); CHLORIDE LEVEL 107 MMOL/L (98-107); CREATININE FOR GFR 0.71 MG/DL (0.70-1.30); GLOMERULAR FILTRATION RATE > 60.0 (>42); GLUCOSE, FASTING 247 MG/DL (74-106); POTASSIUM SERUM 4.7 MMOL/L (3.5-5.1); SODIUM LEVEL 140 MMOL/L (136-145)
[2024-09-10] MEDS: methocarbamoL 500 MG TAB PO PRN (09:26)
[2024-09-10] MEDS: PERCOCET 5MG/325MG TAB PO PRN (15:07)
[2024-09-11 03:59] VITALS: BP 150/97; TEMP 98.1; O2SAT 96
[2024-09-11 06:04] LABS: MEAN CORPUSCULAR HEMOGLOBIN 30.8 pg (27.0-33.0); MEAN CORPUSCULAR HGB CONC 32.3 g/dl (32.0-36.5); MEAN CORPUSCULAR VOLUME 95.4 fl (80.0-96.0); PLATELET COUNT, AUTOMATED 323 10^3/uL (150-450); RED BLOOD COUNT 3.25 10^6/uL (4.30-6.10); WHITE BLOOD COUNT 11.7 10^3/uL (4.0-10.0)
[2024-09-11 06:23] LABS: BLOOD UREA NITROGEN 19 MG/DL (9-23); CARBON DIOXIDE LEVEL 27 MMOL/L (20-31); CHLORIDE LEVEL 103 MMOL/L (98-107); CREATININE FOR GFR 0.65 MG/DL (0.70-1.30); GLOMERULAR FILTRATION RATE > 60.0 (>42); GLUCOSE, FASTING 271 MG/DL (74-106); POTASSIUM SERUM 4.6 MMOL/L (3.5-5.1); SODIUM LEVEL 139 MMOL/L (136-145)
[2024-09-11 12:00] VITALS: BP 129/70; TEMP 97.9; O2SAT 93
[2024-09-11] MEDS: GABAPENTIN 300 MG CAP PO SCH (21:10)
[2024-09-11 21:20] VITALS: BP 152/85; TEMP 98.4; O2SAT 93
[2024-09-11 22:10] VITALS: O2SAT 85
[2024-09-11 22:14] VITALS: O2SAT 91
[2024-09-12 06:15] VITALS: BP 156/82; TEMP 98.2; O2SAT 93
[2024-09-12] MEDS: IPRATROPIUM 0.5MG/ALBUTEROL 2.5MG INH SOL UD 3ML (DUONEB) NEB SCH (08:00)
[2024-09-12 09:35] LABS: HEMATOCRIT 31.1 % (42.0-52.0); HEMOGLOBIN 9.9 g/dl (13.5-17.5); MEAN CORPUSCULAR HEMOGLOBIN 30.7 pg (27.0-33.0); MEAN CORPUSCULAR HGB CONC 31.8 g/dl (32.0-36.5); MEAN CORPUSCULAR VOLUME 96.6 fl (80.0-96.0); PLATELET COUNT, AUTOMATED 332 10^3/uL (150-450); RED BLOOD COUNT 3.22 10^6/uL (4.30-6.10)
[2024-09-12 10:00] LABS: BLOOD UREA NITROGEN 23 MG/DL (9-23); CALCIUM LEVEL 8.1 MG/DL (8.3-10.6); CARBON DIOXIDE LEVEL 28 MMOL/L (20-31); CHLORIDE LEVEL 103 MMOL/L (98-107); CREATININE FOR GFR 0.83 MG/DL (0.70-1.30); GLOMERULAR FILTRATION RATE > 60.0 (>42); GLUCOSE, FASTING 300 MG/DL (74-106); POTASSIUM SERUM 4.9 MMOL/L (3.5-5.1); SODIUM LEVEL 138 MMOL/L (136-145)
[2024-09-12 12:00] VITALS: BP 141/78; TEMP 97.9; O2SAT 97
[2024-09-12] MEDS: FUROSEMIDE 20MG/2ML VIAL IV SCH (12:29)
[2024-09-12 20:50] VITALS: BP 138/78; TEMP 98.1; O2SAT 91
[2024-09-13 06:15] LABS: HEMOGLOBIN 9.7 g/dl (13.5-17.5); MEAN CORPUSCULAR HEMOGLOBIN 31.1 pg (27.0-33.0); MEAN CORPUSCULAR HGB CONC 32.3 g/dl (32.0-36.5); MEAN CORPUSCULAR VOLUME 96.2 fl (80.0-96.0); PLATELET COUNT, AUTOMATED 307 10^3/uL (150-450); RED BLOOD COUNT 3.12 10^6/uL (4.30-6.10); WHITE BLOOD COUNT 10.8 10^3/uL (4.0-10.0)
[2024-09-13 06:30] VITALS: BP 125/73; TEMP 97.5; O2SAT 95
[2024-09-13 06:51] LABS: BLOOD UREA NITROGEN 22 MG/DL (9-23); CARBON DIOXIDE LEVEL 30 MMOL/L (20-31); CHLORIDE LEVEL 104 MMOL/L (98-107); CREATININE FOR GFR 0.86 MG/DL (0.70-1.30); GLOMERULAR FILTRATION RATE > 60.0 (>42); GLUCOSE, FASTING 272 MG/DL (74-106); SODIUM LEVEL 139 MMOL/L (136-145)
[2024-09-13] MEDS ORDERED: LanTUS (INSULIN GLARGINE INJ) 1 UNITS/0.01 ML SC SCH (09:00)
[2024-09-13] MEDS: LanTUS (INSULIN GLARGINE INJ) 1 UNITS/0.01 ML SC ONE (10:23)
[2024-09-13 12:00] VITALS: BP 125/72; TEMP 97.5; O2SAT 95
[2024-09-13] MEDS: LanTUS (INSULIN GLARGINE INJ) 1 UNITS/0.01 ML SC SCH (21:28)
[2024-09-13 21:50] VITALS: BP 124/71; TEMP 97.9; O2SAT 92
[2024-09-14 04:45] VITALS: BP 128/75; TEMP 98.1; O2SAT 90
[2024-09-14 05:24] LABS: HEMATOCRIT 29.7 % (42.0-52.0); HEMOGLOBIN 9.3 g/dl (13.5-17.5); MEAN CORPUSCULAR HEMOGLOBIN 30.2 pg (27.0-33.0); MEAN CORPUSCULAR HGB CONC 31.3 g/dl (32.0-36.5); MEAN CORPUSCULAR VOLUME 96.4 fl (80.0-96.0); PLATELET COUNT, AUTOMATED 294 10^3/uL (150-450); RED BLOOD COUNT 3.08 10^6/uL (4.30-6.10); WHITE BLOOD COUNT 10.9 10^3/uL (4.0-10.0)
[2024-09-14 05:49] LABS: BLOOD UREA NITROGEN 26 MG/DL (9-23); CALCIUM LEVEL 7.8 MG/DL (8.3-10.6); CARBON DIOXIDE LEVEL 28 MMOL/L (20-31); CHLORIDE LEVEL 105 MMOL/L (98-107); CREATININE FOR GFR 0.86 MG/DL (0.70-1.30); GLOMERULAR FILTRATION RATE > 60.0 (>42); GLUCOSE, FASTING 235 MG/DL (74-106); POTASSIUM SERUM 4.9 MMOL/L (3.5-5.1); SODIUM LEVEL 140 MMOL/L (136-145)
[2024-09-14] MEDS: AUGMENTIN 875 MG TAB PO SCH (11:38)
[2024-09-14] MEDS: LanTUS (INSULIN GLARGINE INJ) 1 UNITS/0.01 ML SC ONE (11:39)
[2024-09-14] MEDS: FUROSEMIDE 40MG/4ML VIAL IV SCH (11:40)
[2024-09-14 11:43] VITALS: BP 141/91; TEMP 97.7; O2SAT 91
[2024-09-14 13:44] VITALS: O2SAT 93
[2024-09-14 17:11] VITALS: BP 105/80
[2024-09-14 19:35] VITALS: O2SAT 91
[2024-09-14 19:49] VITALS: BP 111/79; TEMP 99.7; O2SAT 91
[2024-09-14] MEDS: LanTUS (INSULIN GLARGINE INJ) 1 UNITS/0.01 ML SC SCH (20:55)
[2024-09-15] VITALS (9 sets, daily range): BP systolic 110–123; BP diastolic 62–76; TEMP 97.7–98.8; O2SAT 84–94
[2024-09-15 05:28] LABS: HEMATOCRIT 30.6 % (42.0-52.0); HEMOGLOBIN 9.7 g/dl (13.5-17.5); MEAN CORPUSCULAR HEMOGLOBIN 30.3 pg (27.0-33.0); MEAN CORPUSCULAR HGB CONC 31.7 g/dl (32.0-36.5); MEAN CORPUSCULAR VOLUME 95.6 fl (80.0-96.0); PLATELET COUNT, AUTOMATED 303 10^3/uL (150-450)
[2024-09-15 05:35] LABS: BLOOD UREA NITROGEN 26 MG/DL (9-23); CALCIUM LEVEL 7.9 MG/DL (8.3-10.6); CARBON DIOXIDE LEVEL 30 MMOL/L (20-31); CHLORIDE LEVEL 105 MMOL/L (98-107); CREATININE FOR GFR 0.74 MG/DL (0.70-1.30); GLOMERULAR FILTRATION RATE > 60.0 (>42); GLUCOSE, FASTING 86 MG/DL (74-106); POTASSIUM SERUM 4.2 MMOL/L (3.5-5.1); SODIUM LEVEL 143 MMOL/L (136-145)
[2024-09-15] MEDS ORDERED: FUROSEMIDE 20 MG TAB PO SCH (09:00)
[2024-09-15] MEDS: SPIRONOLACTONE 25 MG TAB PO SCH (14:22)
[2024-09-15] MEDS: FUROSEMIDE 100MG/10ML VIAL IV SCH (16:10)
[2024-09-16 05:11] VITALS: BP 129/69; TEMP 97.7; O2SAT 93
[2024-09-16 06:21] LABS: HEMOGLOBIN 9.4 g/dl (13.5-17.5); MEAN CORPUSCULAR HEMOGLOBIN 30.2 pg (27.0-33.0); MEAN CORPUSCULAR HGB CONC 31.3 g/dl (32.0-36.5); MEAN CORPUSCULAR VOLUME 96.5 fl (80.0-96.0); PLATELET COUNT, AUTOMATED 297 10^3/uL (150-450); RED BLOOD COUNT 3.11 10^6/uL (4.30-6.10); WHITE BLOOD COUNT 9.7 10^3/uL (4.0-10.0)
[2024-09-16] MEDS ORDERED: GLYCOPYRROLATE INJ 0.2 MG/ML 2 ML VIAL As Ordered ONE (06:34)
[2024-09-16 06:46] LABS: BLOOD UREA NITROGEN 25 MG/DL (9-23); CALCIUM LEVEL 8.1 MG/DL (8.3-10.6); CARBON DIOXIDE LEVEL 33 MMOL/L (20-31); CHLORIDE LEVEL 102 MMOL/L (98-107); CREATININE FOR GFR 0.75 MG/DL (0.70-1.30); GLOMERULAR FILTRATION RATE > 60.0 (>42); GLUCOSE, FASTING 99 MG/DL (74-106); POTASSIUM SERUM 4.4 MMOL/L (3.5-5.1); SODIUM LEVEL 141 MMOL/L (136-145)
[2024-09-16] MEDS: SODIUM CHLORIDE 0.9% 3ML NEB SOLUTION FOR INHALATION INH SCH (08:00)
[2024-09-16] MEDS: guaiFENesin ER TABLET 600 MG TAB PO SCH (09:47)
[2024-09-16 10:46] LABS: PROCALCITONIN 0.13 ng/ml
[2024-09-16 11:40] VITALS: BP 121/68; TEMP 97.9; O2SAT 92
[2024-09-16 20:18] VITALS: BP 119/68; TEMP 97.5; O2SAT 90
[2024-09-17 03:57] VITALS: BP 120/67; TEMP 98.4; O2SAT 89
[2024-09-17 05:47] LABS: HEMOGLOBIN 9.4 g/dl (13.5-17.5); MEAN CORPUSCULAR HEMOGLOBIN 30.5 pg (27.0-33.0); MEAN CORPUSCULAR HGB CONC 31.3 g/dl (32.0-36.5); MEAN CORPUSCULAR VOLUME 97.4 fl (80.0-96.0); PLATELET COUNT, AUTOMATED 278 10^3/uL (150-450); RED BLOOD COUNT 3.08 10^6/uL (4.30-6.10); WHITE BLOOD COUNT 8.7 10^3/uL (4.0-10.0)
[2024-09-17 06:00] LABS: BLOOD UREA NITROGEN 28 MG/DL (9-23); CALCIUM LEVEL 8.2 MG/DL (8.3-10.6); CARBON DIOXIDE LEVEL 33 MMOL/L (20-31); CHLORIDE LEVEL 104 MMOL/L (98-107); CREATININE FOR GFR 0.84 MG/DL (0.70-1.30); GLOMERULAR FILTRATION RATE > 60.0 (>42); GLUCOSE, FASTING 92 MG/DL (74-106); POTASSIUM SERUM 4.1 MMOL/L (3.5-5.1); SODIUM LEVEL 144 MMOL/L (136-145)
[2024-09-17] MEDS: DEXTROSE 50% 50ML SYRINGE IV PRN (07:41)
[2024-09-17 08:24] LABS: PROCALCITONIN 0.13 ng/ml
[2024-09-17 09:30] VITALS: BP 132/73; TEMP 97.7; O2SAT 90
[2024-09-17 12:00] VITALS: BP 132/72; TEMP 97.9; O2SAT 92
[2024-09-17 14:11] LABS: ALKALINE PHOSPHATASE 189 U/L (40-129); ALT/SGPT 22 U/L (7.0-40); AST/SGOT 16 U/L (<34); BILIRUBIN,DIRECT 0.1 MG/DL (<0.4); BILIRUBIN,TOTAL 0.3 MG/DL (0.3-1.2); TOTAL PROTEIN 5.7 G/DL (5.7-8.2)
[2024-09-17 19:29] VITALS: O2SAT 91
[2024-09-17] MEDS: LanTUS (INSULIN GLARGINE INJ) 1 UNITS/0.01 ML SC SCH (20:50)
[2024-09-17 20:54] VITALS: BP 124/70; TEMP 98.4; O2SAT 92
[2024-09-18 03:26] VITALS: BP 117/68; TEMP 97.9; O2SAT 93
[2024-09-18 06:26] LABS: HEMATOCRIT 29.9 % (42.0-52.0); HEMOGLOBIN 9.3 g/dl (13.5-17.5); MEAN CORPUSCULAR HEMOGLOBIN 30.6 pg (27.0-33.0); MEAN CORPUSCULAR HGB CONC 31.1 g/dl (32.0-36.5); MEAN CORPUSCULAR VOLUME 98.4 fl (80.0-96.0); PLATELET COUNT, AUTOMATED 294 10^3/uL (150-450); RED BLOOD COUNT 3.04 10^6/uL (4.30-6.10)
[2024-09-18 06:59] LABS: BLOOD UREA NITROGEN 28 MG/DL (9-23); CALCIUM LEVEL 8.1 MG/DL (8.3-10.6); CARBON DIOXIDE LEVEL 34 MMOL/L (20-31); CHLORIDE LEVEL 102 MMOL/L (98-107); CREATININE FOR GFR 0.77 MG/DL (0.70-1.30); GLOMERULAR FILTRATION RATE > 60.0 (>42); GLUCOSE, FASTING 233 MG/DL (74-106); POTASSIUM SERUM 4.5 MMOL/L (3.5-5.1); SODIUM LEVEL 143 MMOL/L (136-145)
[2024-09-18] MEDS: INSULIN LISPRO (NovoLOG) PER UNIT SC SCH ×5 (07:30→20:39)
[2024-09-18] MEDS ORDERED: INSULIN LISPRO (NovoLOG) PER UNIT SC SCH ×3 (07:30→17:30)
[2024-09-18] MEDS: LanTUS (INSULIN GLARGINE INJ) 1 UNITS/0.01 ML SC SCH (09:57)
[2024-09-18] MEDS: SODIUM CHLORIDE NASAL 0.65% SPRAY BTL (OCEAN) PRN (10:14)
[2024-09-18 12:00] VITALS: BP 125/71; TEMP 97.5; O2SAT 90
[2024-09-18 13:39] LABS: APPEARANCE, BODY FLUID CLEAR (CLEAR); PLEURAL FL COLOR PALE YELLOW (COLORLESS); SOURCE, BODY FLUID PLEURAL
[2024-09-18 14:02] LABS: SOURCE, BODY FLUID ALBUMIN PLEURAL
[2024-09-18 14:07] LABS: SOURCE, BODY FLUID GLUCOSE PLEURAL; SOURCE, BODY FLUID TOT PROTEIN PLEURAL; SOURCE, BODY FLUID TRIG PLEURAL; TOTAL PROTEIN, BODY FLUID < 2.0 G/DL (NOT ESTABLISHED); TRIGLYCERIDE, BODY FLUID 14.99999 MG/DL (NOT ESTABLISHED)
[2024-09-18 14:08] LABS: AMYLASE, BODY FLUID 22 U/L (NOT ESTABLISHED); LDH, BODY FLUID 109 U/L (NOT ESTABLISHED); SOURCE, BODY FLUID AMYLASE PLEURAL; SOURCE, BODY FLUID LDH PLEURAL
[2024-09-18 14:09] LABS: CHOLESTEROL, BODY FLUID < 25 MG/DL (NOT ESTABLISHED); SOURCE, BODY FLUID CHOL PLEURAL
[2024-09-18] MEDS: VANICREAM MOISTURIZING SKIN CREAM 113GM TUBE TOP SCH (14:23)
[2024-09-18 20:00] VITALS: BP 124/70; TEMP 97.9; O2SAT 93
[2024-09-19 04:00] VITALS: BP 123/69; TEMP 98.6; O2SAT 91
[2024-09-19 08:47] LABS: HEMATOCRIT 30.9 % (42.0-52.0); HEMOGLOBIN 9.6 g/dl (13.5-17.5); MEAN CORPUSCULAR HEMOGLOBIN 30.8 pg (27.0-33.0); MEAN CORPUSCULAR HGB CONC 31.1 g/dl (32.0-36.5); PLATELET COUNT, AUTOMATED 302 10^3/uL (150-450); RED BLOOD COUNT 3.12 10^6/uL (4.30-6.10); WHITE BLOOD COUNT 8.4 10^3/uL (4.0-10.0)
[2024-09-19 09:16] LABS: LDH LACTATE DEHYDROGENASE 232 U/L (120-246)
[2024-09-19 09:17] LABS: BLOOD UREA NITROGEN 31 MG/DL (9-23); CALCIUM LEVEL 8.2 MG/DL (8.3-10.6); CARBON DIOXIDE LEVEL 35 MMOL/L (20-31); CHLORIDE LEVEL 100 MMOL/L (98-107); GLOMERULAR FILTRATION RATE > 60.0 (>42); GLUCOSE, FASTING 165 MG/DL (74-106); MAGNESIUM LEVEL 2.2 MG/DL (1.8-2.4); POTASSIUM SERUM 4.5 MMOL/L (3.5-5.1); SODIUM LEVEL 144 MMOL/L (136-145)
[2024-09-19 13:16] LABS: APPEARANCE, BODY FLUID CLEAR (CLEAR); PLEURAL FL COLOR PALE YELLOW (COLORLESS); SOURCE, BODY FLUID PLEURAL
[2024-09-19 14:07] LABS: LDH, BODY FLUID 104 U/L (NOT ESTABLISHED); SOURCE, BODY FLUID ALBUMIN PLEURAL; SOURCE, BODY FLUID GLUCOSE PLEURAL; SOURCE, BODY FLUID LDH PLEURAL; SOURCE, BODY FLUID TOT PROTEIN PLEURAL; TOTAL PROTEIN, BODY FLUID < 2.0 G/DL (NOT ESTABLISHED)
[2024-09-19 20:23] VITALS: BP 109/66; TEMP 98.6; O2SAT 92
[2024-09-20 03:58] VITALS: BP 115/68; TEMP 98.6; O2SAT 93
[2024-09-20 05:24] LABS: HEMATOCRIT 29.9 % (42.0-52.0); HEMOGLOBIN 9.6 g/dl (13.5-17.5); MEAN CORPUSCULAR HEMOGLOBIN 30.6 pg (27.0-33.0); MEAN CORPUSCULAR HGB CONC 32.1 g/dl (32.0-36.5); MEAN CORPUSCULAR VOLUME 95.2 fl (80.0-96.0); PLATELET COUNT, AUTOMATED 277 10^3/uL (150-450); RED BLOOD COUNT 3.14 10^6/uL (4.30-6.10); WHITE BLOOD COUNT 7.1 10^3/uL (4.0-10.0)
[2024-09-20 05:47] LABS: BLOOD UREA NITROGEN 32 MG/DL (9-23); CALCIUM LEVEL 8.2 MG/DL (8.3-10.6); CARBON DIOXIDE LEVEL 36 MMOL/L (20-31); CHLORIDE LEVEL 100 MMOL/L (98-107); CREATININE FOR GFR 0.81 MG/DL (0.70-1.30); GLOMERULAR FILTRATION RATE > 60.0 (>42); GLUCOSE, FASTING 218 MG/DL (74-106); MAGNESIUM LEVEL 2.2 MG/DL (1.8-2.4); POTASSIUM SERUM 4.2 MMOL/L (3.5-5.1); SODIUM LEVEL 139 MMOL/L (136-145)
[2024-09-20 12:00] VITALS: BP 117/68; TEMP 97.5; O2SAT 92
[2024-09-20 19:35] VITALS: BP 102/62; TEMP 98.1; O2SAT 94
[2024-09-21 04:14] VITALS: BP 128/79; TEMP 98.1; O2SAT 92
[2024-09-21 05:51] LABS: HEMATOCRIT 31.8 % (42.0-52.0); HEMOGLOBIN 10.1 g/dl (13.5-17.5); MEAN CORPUSCULAR HEMOGLOBIN 30.6 pg (27.0-33.0); MEAN CORPUSCULAR HGB CONC 31.8 g/dl (32.0-36.5); MEAN CORPUSCULAR VOLUME 96.4 fl (80.0-96.0); PLATELET COUNT, AUTOMATED 277 10^3/uL (150-450); WHITE BLOOD COUNT 6.1 10^3/uL (4.0-10.0)
[2024-09-21 06:16] LABS: BLOOD UREA NITROGEN 31 MG/DL (9-23); CALCIUM LEVEL 8.7 MG/DL (8.3-10.6); CARBON DIOXIDE LEVEL 37 MMOL/L (20-31); CHLORIDE LEVEL 100 MMOL/L (98-107); CREATININE FOR GFR 0.79 MG/DL (0.70-1.30); GLOMERULAR FILTRATION RATE > 60.0 (>42); GLUCOSE, FASTING 195 MG/DL (74-106); MAGNESIUM LEVEL 2.2 MG/DL (1.8-2.4); POTASSIUM SERUM 4.4 MMOL/L (3.5-5.1); SODIUM LEVEL 144 MMOL/L (136-145)
[2024-09-21 08:10] VITALS: BP 128/74
[2024-09-21 14:26] VITALS: BP 127/72; TEMP 98.2; O2SAT 92
[2024-09-21] MEDS: TORSEMIDE 20 MG TAB PO SCH (16:24)
[2024-09-21 20:15] VITALS: BP 125/71; TEMP 97.5; O2SAT 97
[2024-09-21] MEDS: TAMSULOSIN 0.4 MG CAP PO ONE (22:24)
[2024-09-22 04:00] VITALS: BP 100/63; TEMP 97.3; O2SAT 95
[2024-09-22 06:09] LABS: HEMATOCRIT 31.2 % (42.0-52.0); HEMOGLOBIN 10.2 g/dl (13.5-17.5); MEAN CORPUSCULAR HEMOGLOBIN 30.3 pg (27.0-33.0); MEAN CORPUSCULAR HGB CONC 32.7 g/dl (32.0-36.5); MEAN CORPUSCULAR VOLUME 92.6 fl (80.0-96.0); PLATELET COUNT, AUTOMATED 295 10^3/uL (150-450); RED BLOOD COUNT 3.37 10^6/uL (4.30-6.10); WHITE BLOOD COUNT 6.5 10^3/uL (4.0-10.0)
[2024-09-22 06:26] LABS: BLOOD UREA NITROGEN 32 MG/DL (9-23); CALCIUM LEVEL 8.4 MG/DL (8.3-10.6); CARBON DIOXIDE LEVEL 35 MMOL/L (20-31); CHLORIDE LEVEL 98 MMOL/L (98-107); CREATININE FOR GFR 0.85 MG/DL (0.70-1.30); GLOMERULAR FILTRATION RATE > 60.0 (>42); GLUCOSE, FASTING 170 MG/DL (74-106); MAGNESIUM LEVEL 2.2 MG/DL (1.8-2.4); POTASSIUM SERUM 4.2 MMOL/L (3.5-5.1); SODIUM LEVEL 140 MMOL/L (136-145)
[2024-09-22 07:58] VITALS: BP 105/63
[2024-09-22 11:45] VITALS: BP 105/64; TEMP 97.9; O2SAT 98
[2024-09-22] MEDS ORDERED: PILL CUTTER 1 EACH XX PRN (12:05)
[2024-09-22] MEDS: DAPAGLIFLOZIN PROPANEDIOL 10MG TABLET (FARXIGA) PO SCH (12:13)
[2024-09-22 19:43] VITALS: BP 100/58; TEMP 97.5; O2SAT 94
[2024-09-22 19:50] VITALS: O2SAT 97
[2024-09-22] MEDS: TAMSULOSIN 0.4 MG CAP PO SCH (21:43)
[2024-09-23 03:44] VITALS: BP 104/58; TEMP 98.1; O2SAT 94
[2024-09-23 05:53] LABS: HEMATOCRIT 30.9 % (42.0-52.0); HEMOGLOBIN 10.2 g/dl (13.5-17.5); MEAN CORPUSCULAR HEMOGLOBIN 30.7 pg (27.0-33.0); MEAN CORPUSCULAR VOLUME 93.1 fl (80.0-96.0); PLATELET COUNT, AUTOMATED 305 10^3/uL (150-450); RED BLOOD COUNT 3.32 10^6/uL (4.30-6.10); WHITE BLOOD COUNT 6.5 10^3/uL (4.0-10.0)
[2024-09-23 06:22] LABS: BLOOD UREA NITROGEN 41 MG/DL (9-23); CALCIUM LEVEL 8.7 MG/DL (8.3-10.6); CARBON DIOXIDE LEVEL 35 MMOL/L (20-31); CHLORIDE LEVEL 98 MMOL/L (98-107); CREATININE FOR GFR 1.01 MG/DL (0.70-1.30); GLOMERULAR FILTRATION RATE > 60.0 (>42); GLUCOSE, FASTING 216 MG/DL (74-106); MAGNESIUM LEVEL 2.3 MG/DL (1.8-2.4); POTASSIUM SERUM 4.5 MMOL/L (3.5-5.1); SODIUM LEVEL 142 MMOL/L (136-145)
[2024-09-23] MEDS: LanTUS (INSULIN GLARGINE INJ) 1 UNITS/0.01 ML SC SCH (07:54)
[2024-09-23 12:00] VITALS: BP 117/69; TEMP 97.5; O2SAT 98
[2024-09-23 19:37] VITALS: O2SAT 98
[2024-09-23 20:00] VITALS: BP 108/71; TEMP 97.7; O2SAT 93
[2024-09-24 02:00] VITALS: BP 110/71; TEMP 97.5; O2SAT 94
[2024-09-24 04:00] VITALS: BP 110/71; TEMP 97.5; O2SAT 94
[2024-09-24 06:20] LABS: HEMATOCRIT 34.8 % (42.0-52.0); HEMOGLOBIN 11.1 g/dl (13.5-17.5); MEAN CORPUSCULAR HEMOGLOBIN 29.7 pg (27.0-33.0); MEAN CORPUSCULAR HGB CONC 31.9 g/dl (32.0-36.5); PLATELET COUNT, AUTOMATED 324 10^3/uL (150-450); RED BLOOD COUNT 3.74 10^6/uL (4.30-6.10); WHITE BLOOD COUNT 7.2 10^3/uL (4.0-10.0)
[2024-09-24 06:46] LABS: BLOOD UREA NITROGEN 43 MG/DL (9-23); CALCIUM LEVEL 8.9 MG/DL (8.3-10.6); CARBON DIOXIDE LEVEL 33 MMOL/L (20-31); CHLORIDE LEVEL 97 MMOL/L (98-107); GLOMERULAR FILTRATION RATE > 60.0 (>42); GLUCOSE, FASTING 243 MG/DL (74-106); MAGNESIUM LEVEL 2.4 MG/DL (1.8-2.4); POTASSIUM SERUM 4.9 MMOL/L (3.5-5.1); SODIUM LEVEL 139 MMOL/L (136-145)
[2024-09-24] MEDS: TORSEMIDE 20 MG TAB PO SCH (08:08)
[2024-09-24] MEDS ORDERED: ALDA25TA2 PO (10:37)
[2024-09-24] MEDS ORDERED: SENO8.6T5 PO (10:37)
[2024-09-24] MEDS ORDERED: GABA-1172 PO (10:37)
[2024-09-24] MEDS ORDERED: TORS20TA2 PO (10:37)
[2024-09-24] MEDS ORDERED: MIRA33506 PO (10:37)
[2024-09-24] MEDS ORDERED: INSUHUMDS SC ×2 (10:37)
[2024-09-24] MEDS ORDERED: INSULANT SC (10:37)
[2024-09-24] MEDS ORDERED: PANT40TA29 PO (10:37)
[2024-09-24] MEDS ORDERED: FARX1TAB3 PO (10:37)
[2024-09-24] MEDS ORDERED: FLOM0.4C39 PO (10:37)
[2024-09-24] MEDS ORDERED: ACET-683 PO (10:40)
[2024-09-24] MEDS ORDERED: MUCI600T31 PO (10:40)
[2024-09-24] MEDS ORDERED: NS3NEB INH (10:40)
[2024-09-24] MEDS ORDERED: IPRA0.00 NEB (10:40)
[2024-09-24] MEDS ORDERED: OXYC-517 PO (10:41)
== END 2024-09-24 12:37 | DRG 853 ==
LOC: M ED 20:48 → M ED INP 09-04 12:51 → M MSPAV 09-04 13:15
PROVIDERS: ADMIT Student in an Organized Health Care Education/Training Program; ATTEND Internal Medicine Nephrology
PROC: 0Y6J0Z3 Detachment at Left Lower Leg, Low, Open Approach (ICD-10-PCS; principal; 2024-09-08 15:30)
PROC: 0W9B3ZZ Drainage of Left Pleural Cavity, Percutaneous Approach (ICD-10-PCS; 2024-09-18)
PROC: 0W993ZZ Drainage of Right Pleural Cavity, Percutaneous Approach (ICD-10-PCS; 2024-09-19)
DX: A41.9 Sepsis, unspecified organism (principal); M72.6 Necrotizing fasciitis; I50.31 Acute diastolic (congestive) heart failure; J96.21 Acute and chronic respiratory failure with hypoxia; E87.1 Hypo-osmolality and hyponatremia; R04.2 Hemoptysis; J98.11 Atelectasis; J90 Pleural effusion, not elsewhere classified; E11.40 Type 2 diabetes mellitus with diabetic neuropathy, unspecified; E11.628 Type 2 diabetes mellitus with other skin complications; E78.5 Hyperlipidemia, unspecified; F90.9 Attention-deficit hyperactivity disorder, unspecified type; Z89.512 Acquired absence of left leg below knee; K21.9 Gastro-esophageal reflux disease without esophagitis; F41.9 Anxiety disorder, unspecified; G47.30 Sleep apnea, unspecified; E11.649 Type 2 diabetes mellitus with hypoglycemia without coma; I11.0 Hypertensive heart disease with heart failure; R33.9 Retention of urine, unspecified; K59.00 Constipation, unspecified; E11.621 Type 2 diabetes mellitus with foot ulcer; F32.A Depression, unspecified; F43.10 Post-traumatic stress disorder, unspecified; Z79.899 Other long term (current) drug therapy; Z79.4 Long term (current) use of insulin; Z88.8 Allergy status to other drugs, medicaments and biological substances; D64.9 Anemia, unspecified

== ENCOUNTER → 2024-09-27 | Outpatient (REF) ==
[~2024-09-27] MED LIST changes: +ACET-683 PO; +ALDA25TA2 PO; +DOXY100C3 PO; +FARX1TAB3 PO; +FLOM0.4C39 PO; +INSUHUMDS SC; +INSULANT SC; +IPRA0.00 NEB; +MIRA33506 PO; +MUCI600T31 PO; +NS3NEB INH; +OXYC-517 PO; +PANT40TA29 PO; +SENO8.6T5 PO; +SILV40CR TOP; +TIRZ2.5P SQ; +TORS20TA2 PO
[2024-09-27 07:31] LABS: HEMATOCRIT 34.1 % (42.0-52.0); HEMOGLOBIN 11.1 g/dl (13.5-17.5); MEAN CORPUSCULAR HEMOGLOBIN 30.3 pg (27.0-33.0); MEAN CORPUSCULAR HGB CONC 32.6 g/dl (32.0-36.5); MEAN CORPUSCULAR VOLUME 93.2 fl (80.0-96.0); PLATELET COUNT, AUTOMATED 306 10^3/uL (150-450); RED BLOOD COUNT 3.66 10^6/uL (4.30-6.10); WHITE BLOOD COUNT 7.3 10^3/uL (4.0-10.0)
[2024-09-27 07:51] LABS: BLOOD UREA NITROGEN 37 MG/DL (9-23); CALCIUM LEVEL 8.6 MG/DL (8.3-10.6); CARBON DIOXIDE LEVEL 31 MMOL/L (20-31); CHLORIDE LEVEL 99 MMOL/L (98-107); CREATININE FOR GFR 0.93 MG/DL (0.70-1.30); GLOMERULAR FILTRATION RATE > 60.0 (>42); GLUCOSE, FASTING 154 MG/DL (74-106); POTASSIUM SERUM 4.6 MMOL/L (3.5-5.1); SODIUM LEVEL 139 MMOL/L (136-145)
== END ==
PROVIDERS: ATTEND Physician Assistant
DX: E11.9 Type 2 diabetes mellitus without complications (principal)

== ENCOUNTER → 2024-09-28 | Outpatient (REF) | payer MEDICARE, MEDICAID | PROVIDERS: ATTEND Physician Assistant | DX: Z47.81 Encounter for orthopedic aftercare following surgical amputation (principal); Z89.519 Acquired absence of unspecified leg below knee; Z53.8 Procedure and treatment not carried out for other reasons ==

== ENCOUNTER → 2024-09-29 | Outpatient (CLI) | payer MEDICARE, MEDICAID | LOC: M SOG 13:08 | PROVIDERS: ATTEND Physician Assistant | DX: Z47.81 Encounter for orthopedic aftercare following surgical amputation (principal) ==

== ENCOUNTER → 2024-09-29 | Outpatient (REF) ==
[2024-09-29 08:49] LABS: BASO # 0.1 10^3/uL (0.0-0.2); EOS # 0.4 10^3/uL (0.0-0.5); EOS % 4.9 % (0.0-3.0); HEMATOCRIT 36.2 % (42.0-52.0); HEMOGLOBIN 11.6 g/dl (13.5-17.5); LYMPH # 2.2 10^3/uL (1.5-5.0); LYMPH % 28.4 % (24.0-44.0); MEAN CORPUSCULAR HEMOGLOBIN 29.8 pg (27.0-33.0); MEAN CORPUSCULAR VOLUME 93.1 fl (80.0-96.0); MONO % 13.2 % (2.0-8.0); PLATELET COUNT, AUTOMATED 330 10^3/uL (150-450); RED BLOOD COUNT 3.89 10^6/uL (4.30-6.10); WHITE BLOOD COUNT 7.8 10^3/uL (4.0-10.0)
[2024-09-29 09:02] LABS: ERYTHROCYTE SEDIMENTATION RATE 67 mm/hr (0-20)
[2024-09-29 09:17] LABS: BLOOD UREA NITROGEN 35 MG/DL (9-23); C REACTIVE PROTEIN QUANTITATIV 1.75 MG/DL (<1.0); CALCIUM LEVEL 8.5 MG/DL (8.3-10.6); CARBON DIOXIDE LEVEL 32 MMOL/L (20-31); CHLORIDE LEVEL 99 MMOL/L (98-107); CREATININE FOR GFR 1.03 MG/DL (0.70-1.30); GLOMERULAR FILTRATION RATE > 60.0 (>42); GLUCOSE, FASTING 183 MG/DL (74-106); POTASSIUM SERUM 4.6 MMOL/L (3.5-5.1); SODIUM LEVEL 138 MMOL/L (136-145)
== END ==
PROVIDERS: ATTEND Physician Assistant
DX: Z47.81 Encounter for orthopedic aftercare following surgical amputation (principal); Z89.519 Acquired absence of unspecified leg below knee

== ENCOUNTER → 2024-09-30 | Outpatient (REF) ==
[2024-09-30 15:32] LABS: BASO # 0.1 10^3/uL (0.0-0.2); BASO % 0.5 % (0.0-1.0); EOS # 0.4 10^3/uL (0.0-0.5); EOS % 3.2 % (0.0-3.0); HEMATOCRIT 38.2 % (42.0-52.0); HEMOGLOBIN 12.1 g/dl (13.5-17.5); LYMPH # 2.7 10^3/uL (1.5-5.0); LYMPH % 23.6 % (24.0-44.0); MEAN CORPUSCULAR HEMOGLOBIN 30.4 pg (27.0-33.0); MEAN CORPUSCULAR HGB CONC 31.7 g/dl (32.0-36.5); MONO # 1.3 10^3/uL (0.0-0.8); NEUTROPHILS % 61.3 % (36.0-66.0); PLATELET COUNT, AUTOMATED 326 10^3/uL (150-450); RED BLOOD COUNT 3.98 10^6/uL (4.30-6.10); WHITE BLOOD COUNT 11.4 10^3/uL (4.0-10.0)
[2024-09-30 15:40] LABS: ERYTHROCYTE SEDIMENTATION RATE 73 mm/hr (0-20)
[2024-09-30 16:23] LABS: C REACTIVE PROTEIN QUANTITATIV 1.37 MG/DL (<1.0)
[2024-09-30 16:28] LABS: BLOOD UREA NITROGEN 32 MG/DL (9-23); CALCIUM LEVEL 8.9 MG/DL (8.3-10.6); CARBON DIOXIDE LEVEL 28 MMOL/L (20-31); CHLORIDE LEVEL 97 MMOL/L (98-107); CREATININE FOR GFR 0.94 MG/DL (0.70-1.30); GLOMERULAR FILTRATION RATE > 60.0 (>42); GLUCOSE, FASTING 85 MG/DL (74-106); POTASSIUM SERUM 5.6 MMOL/L (3.5-5.1); SODIUM LEVEL 141 MMOL/L (136-145)
== END ==
PROVIDERS: ATTEND Physician Assistant
DX: Z47.81 Encounter for orthopedic aftercare following surgical amputation (principal); Z89.519 Acquired absence of unspecified leg below knee

== ENCOUNTER → 2024-10-01 | Outpatient (REF) | PROVIDERS: ATTEND Physician Assistant | DX: E87.6 Hypokalemia (principal) ==

== ENCOUNTER → 2024-10-03 | Outpatient (REF) | PROVIDERS: ATTEND Physician Assistant | DX: R50.9 Fever, unspecified (principal) ==

== ENCOUNTER → 2024-10-04 | Outpatient (REF) ==
[2024-10-04 16:04] LABS: BASO # 0.1 10^3/uL (0.0-0.2); BASO % 0.8 % (0.0-1.0); EOS # 0.3 10^3/uL (0.0-0.5); EOS % 3.3 % (0.0-3.0); HEMATOCRIT 36.4 % (42.0-52.0); HEMOGLOBIN 11.4 g/dl (13.5-17.5); LYMPH # 2.2 10^3/uL (1.5-5.0); LYMPH % 23.8 % (24.0-44.0); MEAN CORPUSCULAR HEMOGLOBIN 28.9 pg (27.0-33.0); MEAN CORPUSCULAR HGB CONC 31.3 g/dl (32.0-36.5); MEAN CORPUSCULAR VOLUME 92.4 fl (80.0-96.0); MONO # 1.1 10^3/uL (0.0-0.8); NEUTROPHILS # 5.4 10^3/uL (1.5-8.5); NEUTROPHILS % 59.8 % (36.0-66.0); PLATELET COUNT, AUTOMATED 330 10^3/uL (150-450); RED BLOOD COUNT 3.94 10^6/uL (4.30-6.10); WHITE BLOOD COUNT 9.1 10^3/uL (4.0-10.0)
[2024-10-04 16:10] LABS: ERYTHROCYTE SEDIMENTATION RATE 90 mm/hr (0-20)
[2024-10-04 16:32] LABS: BLOOD UREA NITROGEN 36 MG/DL (9-23); C REACTIVE PROTEIN QUANTITATIV 9.49 MG/DL (<1.0); CALCIUM LEVEL 8.7 MG/DL (8.3-10.6); CARBON DIOXIDE LEVEL 31 MMOL/L (20-31); CHLORIDE LEVEL 100 MMOL/L (98-107); CREATININE FOR GFR 0.99 MG/DL (0.70-1.30); GLOMERULAR FILTRATION RATE > 60.0 (>42); GLUCOSE, FASTING 75 MG/DL (74-106); POTASSIUM SERUM 4.8 MMOL/L (3.5-5.1); SODIUM LEVEL 138 MMOL/L (136-145)
== END ==
PROVIDERS: ATTEND Physician Assistant
DX: E11.9 Type 2 diabetes mellitus without complications (principal); Z47.81 Encounter for orthopedic aftercare following surgical amputation; Z89.519 Acquired absence of unspecified leg below knee

== ENCOUNTER → 2024-10-11 | Outpatient (REF) ==
[2024-10-11 10:08] LABS: HEMATOCRIT 39.8 % (42.0-52.0); HEMOGLOBIN 12.8 g/dl (13.5-17.5); MEAN CORPUSCULAR HEMOGLOBIN 29.1 pg (27.0-33.0); MEAN CORPUSCULAR HGB CONC 32.2 g/dl (32.0-36.5); MEAN CORPUSCULAR VOLUME 90.5 fl (80.0-96.0); PLATELET COUNT, AUTOMATED 274 10^3/uL (150-450); WHITE BLOOD COUNT 14.5 10^3/uL (4.0-10.0)
[2024-10-11 10:23] LABS: ERYTHROCYTE SEDIMENTATION RATE 72 mm/hr (0-20)
[2024-10-11 10:36] LABS: BLOOD UREA NITROGEN 38 MG/DL (9-23); C REACTIVE PROTEIN QUANTITATIV 1.64 MG/DL (<1.0); CALCIUM LEVEL 9.2 MG/DL (8.3-10.6); CARBON DIOXIDE LEVEL 29 MMOL/L (20-31); CHLORIDE LEVEL 97 MMOL/L (98-107); CREATININE FOR GFR 0.96 MG/DL (0.70-1.30); GLOMERULAR FILTRATION RATE > 60.0 (>42); GLUCOSE, FASTING 251 MG/DL (74-106); POTASSIUM SERUM 5.1 MMOL/L (3.5-5.1); SODIUM LEVEL 136 MMOL/L (136-145)
== END ==
PROVIDERS: ATTEND Physician Assistant
DX: Z47.81 Encounter for orthopedic aftercare following surgical amputation (principal); Z89.519 Acquired absence of unspecified leg below knee

== ENCOUNTER → 2024-10-12 | Outpatient (REF) | PROVIDERS: ATTEND Physician Assistant | DX: N39.0 Urinary tract infection, site not specified (principal) ==

== ENCOUNTER → 2024-10-14 | Outpatient (REF) ==
[2024-10-14 18:49] LABS: HEMATOCRIT 39.8 % (42.0-52.0); MEAN CORPUSCULAR HEMOGLOBIN 29.4 pg (27.0-33.0); MEAN CORPUSCULAR HGB CONC 32.7 g/dl (32.0-36.5); PLATELET COUNT, AUTOMATED 246 10^3/uL (150-450); RED BLOOD COUNT 4.42 10^6/uL (4.30-6.10); WHITE BLOOD COUNT 11.1 10^3/uL (4.0-10.0)
[2024-10-14 19:08] LABS: BLOOD UREA NITROGEN 48 MG/DL (9-23); CALCIUM LEVEL 8.5 MG/DL (8.3-10.6); CARBON DIOXIDE LEVEL 27 MMOL/L (20-31); CHLORIDE LEVEL 97 MMOL/L (98-107); GLOMERULAR FILTRATION RATE > 60.0 (>42); GLUCOSE, FASTING 85 MG/DL (74-106); POTASSIUM SERUM 4.6 MMOL/L (3.5-5.1); SODIUM LEVEL 137 MMOL/L (136-145)
== END ==
PROVIDERS: ATTEND Physician Assistant
DX: R30.0 Dysuria (principal)

== ENCOUNTER → 2024-10-18 | Outpatient (REF) ==
[2024-10-18 17:36] LABS: HEMATOCRIT 39.9 % (42.0-52.0); HEMOGLOBIN 12.9 g/dl (13.5-17.5); MEAN CORPUSCULAR HEMOGLOBIN 29.7 pg (27.0-33.0); MEAN CORPUSCULAR HGB CONC 32.3 g/dl (32.0-36.5); MEAN CORPUSCULAR VOLUME 91.7 fl (80.0-96.0); PLATELET COUNT, AUTOMATED 268 10^3/uL (150-450); RED BLOOD COUNT 4.35 10^6/uL (4.30-6.10); WHITE BLOOD COUNT 8.5 10^3/uL (4.0-10.0)
[2024-10-18 17:46] LABS: ERYTHROCYTE SEDIMENTATION RATE 71 mm/hr (0-20)
[2024-10-18 18:03] LABS: BLOOD UREA NITROGEN 41 MG/DL (9-23); C REACTIVE PROTEIN QUANTITATIV 0.81 MG/DL (<1.0); CARBON DIOXIDE LEVEL 28 MMOL/L (20-31); CHLORIDE LEVEL 98 MMOL/L (98-107); CREATININE FOR GFR 1.13 MG/DL (0.70-1.30); GLOMERULAR FILTRATION RATE > 60.0 (>42); GLUCOSE, FASTING 110 MG/DL (74-106); POTASSIUM SERUM 4.6 MMOL/L (3.5-5.1); SODIUM LEVEL 138 MMOL/L (136-145)
== END ==
PROVIDERS: ATTEND Physician Assistant
DX: Z47.81 Encounter for orthopedic aftercare following surgical amputation (principal); Z89.519 Acquired absence of unspecified leg below knee

== ENCOUNTER → 2024-10-20 | Outpatient (REF) ==
[2024-10-20 07:48] LABS: HEMATOCRIT 37.2 % (42.0-52.0); HEMOGLOBIN 12.1 g/dl (13.5-17.5); MEAN CORPUSCULAR HEMOGLOBIN 29.4 pg (27.0-33.0); MEAN CORPUSCULAR HGB CONC 32.5 g/dl (32.0-36.5); MEAN CORPUSCULAR VOLUME 90.5 fl (80.0-96.0); PLATELET COUNT, AUTOMATED 238 10^3/uL (150-450); RED BLOOD COUNT 4.11 10^6/uL (4.30-6.10); WHITE BLOOD COUNT 7.3 10^3/uL (4.0-10.0)
[2024-10-20 08:16] LABS: BLOOD UREA NITROGEN 33 MG/DL (9-23); CALCIUM LEVEL 8.9 MG/DL (8.3-10.6); CARBON DIOXIDE LEVEL 31 MMOL/L (20-31); CHLORIDE LEVEL 102 MMOL/L (98-107); GLOMERULAR FILTRATION RATE > 60.0 (>42); GLUCOSE, FASTING 124 MG/DL (74-106); POTASSIUM SERUM 4.1 MMOL/L (3.5-5.1); SODIUM LEVEL 141 MMOL/L (136-145)
== END ==
PROVIDERS: ATTEND Physician Assistant
DX: E11.9 Type 2 diabetes mellitus without complications (principal)

== ENCOUNTER → 2024-10-22 | Outpatient (REF) | payer MEDICARE, MEDICAID ==
[2024-10-22 18:35] LABS: APPEARANCE, URINE CLEAR (CLEAR); BACTERIA, URINE AUTO NEGATIVE (NEGATIVE); BILIRUBIN, URINE AUTO NEGATIVE (NEGATIVE); BLOOD, URINE BLOOD NEGATIVE (NEGATIVE); COLOR, URINE STRAW (YELLOW); GLUCOSE, URINE (UA) AUTO 3+ mg/dL (NEGATIVE); KETONE, URINE AUTO NEGATIVE (NEGATIVE); LEUKOCYTE ESTERASE, URINE AUTO TRACE (NEGATIVE); NITRITE, URINE AUTO NEGATIVE (NEGATIVE); PROTEIN, URINE AUTO NEGATIVE (NEGATIVE); RBC, URINE AUTO 1 /HPF (0-3); SPECIFIC GRAVITY URINE AUTO 1.009 (1.002-1.035); SQUAMOUS EPITHELIAL CELL UR AU 0 /HPF (0-6); UROBILINOGEN, URINE AUTO 0.2 mg/dL (0.0-2.0); WBC, URINE AUTO 14 /HPF (0-3)
== END ==
PROVIDERS: ATTEND Internal Medicine
DX: R30.0 Dysuria (principal)

== ENCOUNTER → 2024-10-25 | Outpatient (REF) | PROVIDERS: ATTEND Physician Assistant | DX: Z47.81 Encounter for orthopedic aftercare following surgical amputation (principal); Z89.512 Acquired absence of left leg below knee ==

== ENCOUNTER → 2024-11-01 | Outpatient (REF) | payer MEDICARE, MEDICAID | PROVIDERS: ATTEND Physician Assistant | DX: J90 Pleural effusion, not elsewhere classified (principal); I70.0 Atherosclerosis of aorta; K59.00 Constipation, unspecified ==

== ENCOUNTER → 2024-11-03 | Outpatient (REF) | PROVIDERS: ATTEND Physician Assistant | DX: Z53.8 Procedure and treatment not carried out for other reasons (principal) ==

== ENCOUNTER 2024-11-08 19:44 | Emergency (ER) | payer MEDICARE, MEDICAID ==
[~2024-11-08] VITALS: Ht 175.3 cm; Wt 91.5 kg
[~2024-11-08 19:44] MED LIST changes: -BISA10SU27 PR; -FLEEENE12 PR; -GABA-1490 PO; -GLUCLIQ37 PO; -GUAI600T54 PO; -INSULADS INJ; -IPRA0.00 INH; -LACT20EL PO; -MAGN400O73 PO; -MELA5CAP2 PO; -NICO21DI31 TOP; -POLY17PO18 PO; -SANT250O8 TOP; -SENN1TAB96 PO; -SPIR-10 PO; -TAMS1CAP17 PO; -VITATAB73 PO
[2024-11-08 20:08] LABS: BASO % 0.4 % (0.0-1.0); EOS # 0.1 10^3/uL (0.0-0.5); EOS % 0.9 % (0.0-3.0); HEMATOCRIT 35.4 % (42.0-52.0); HEMOGLOBIN 11.8 g/dl (13.5-17.5); LYMPH # 2.3 10^3/uL (1.5-5.0); LYMPH % 21.1 % (24.0-44.0); MEAN CORPUSCULAR HEMOGLOBIN 29.6 pg (27.0-33.0); MEAN CORPUSCULAR HGB CONC 33.3 g/dl (32.0-36.5); MEAN CORPUSCULAR VOLUME 88.9 fl (80.0-96.0); MONO # 1.5 10^3/uL (0.0-0.8); MONO % 13.9 % (2.0-8.0); NEUTROPHILS % 63.4 % (36.0-66.0); PLATELET COUNT, AUTOMATED 190 10^3/uL (150-450); RED BLOOD COUNT 3.98 10^6/uL (4.30-6.10)
[2024-11-08] MEDS ORDERED: ISOVUE-370 76% 100ML VIAL As Ordered ONE (20:10)
[2024-11-08] MEDS ORDERED: HEPARIN SOD (PORCINE) 5000UNITS/ML 1ML VIAL/SYRINGE IV PRN (20:30)
[2024-11-08] MEDS: ONDANSETRON 4MG 2ML VIAL IV ONE (20:30)
[2024-11-08] MEDS: ASPIRIN 81MG CHEW TABLET PO ONE (20:30)
[2024-11-08] MEDS: MORPHINE 4 MG/ML 1ML VIAL IV PRN (20:31)
[2024-11-08 20:32] LABS: CALCIUM LEVEL 8.5 MG/DL (8.3-10.6); CK-MB VALUE MASS 1.3 NG/ML (<3.6); CREATININE FOR GFR 1.14 MG/DL (0.70-1.30); GLOMERULAR FILTRATION RATE 69.2 (>42); MB/CK RELATIVE INDEX 0.53 (< OR =4); POTASSIUM SERUM 4.3 MMOL/L (3.5-5.1)
[2024-11-08] MEDS: HEPARIN SOD (PORCINE) 5000UNITS/ML 1ML VIAL/SYRINGE IV ONE (21:36)
[2024-11-08] MEDS: HEPARIN DRIP 25,000 UNITS in IV 1 EA IV SCH (21:37)
[2024-11-09] MEDS: fentaNYL 100 MCG/2 ML INJECTION IV ONE (00:15)
[2024-11-09 00:31] LABS: CK-MB VALUE MASS 1.8 NG/ML (<3.6)
[2024-11-09 00:32] LABS: MB/CK RELATIVE INDEX 0.87 (< OR =4)
[2024-11-09] MEDS ORDERED: BISA10SU27 PR (01:33)
[2024-11-09] MEDS ORDERED: OXYC-517 PO (01:33)
[2024-11-09] MEDS ORDERED: SPIR-10 PO (01:33)
[2024-11-09] MEDS ORDERED: SENN1TAB96 PO (01:33)
[2024-11-09] MEDS ORDERED: TAMS1CAP17 PO (01:33)
[2024-11-09] MEDS ORDERED: POLY17PO18 PO (01:33)
[2024-11-09] MEDS ORDERED: MELA5CAP2 PO (01:33)
[2024-11-09] MEDS ORDERED: GLUCLIQ37 PO (01:33)
[2024-11-09] MEDS ORDERED: SANT250O8 TOP (01:33)
[2024-11-09] MEDS ORDERED: IPRA0.00 INH (01:33)
[2024-11-09] MEDS ORDERED: FARX1TAB3 PO (01:33)
[2024-11-09] MEDS ORDERED: NICO21DI31 TOP (01:33)
[2024-11-09] MEDS ORDERED: LACT20EL PO (01:33)
[2024-11-09] MEDS ORDERED: MAGN400O73 PO (01:33)
[2024-11-09] MEDS ORDERED: VITATAB73 PO (01:33)
[2024-11-09] MEDS ORDERED: GABA-1490 PO (01:33)
[2024-11-09] MEDS ORDERED: FLEEENE12 PR (01:33)
[2024-11-09] MEDS ORDERED: INSUHUMDS SC (01:33)
[2024-11-09] MEDS ORDERED: INSULADS INJ (01:33)
[2024-11-09] MEDS ORDERED: TORS20TA2 PO (01:33)
[2024-11-09] MEDS ORDERED: GUAI600T54 PO (01:33)
[2024-11-09] MEDS ORDERED: SIMV40TA20 PO (01:33)
[2024-11-09] MEDS ORDERED: HOME MED LIST COMPLETE! XX SCH (01:35)
[2024-11-09] MEDS: LIDOCAINE 5% (LIDODERM) PATCH TD ONE (03:08)
[2024-11-09 04:05] LABS: BILIRUBIN,DIRECT 0.3 MG/DL (<0.4); BILIRUBIN,TOTAL 0.8 MG/DL (0.3-1.2); TOTAL PROTEIN 6.9 G/DL (5.7-8.2)
[2024-11-09] MEDS ORDERED: NITROGLYCERIN 0.4MG SUBL TABLET SL PRN (07:45)
[2024-11-09] MEDS: NS (Normal Saline) 0.9% 1,000 ML IV ONE (08:00)
[2024-11-09 08:01] VITALS: BP 124/74
[2024-11-09] MEDS: ASPIRIN 81MG CHEW TABLET PO ONE (08:01)
[2024-11-09] MEDS: NITROGLYCERIN 0.4MG SUBL TABLET SL STA (08:01)
[2024-11-09] MEDS: ATORVASTATIN 20 MG TAB PO ONE (08:09)
[2024-11-09] MEDS: RANOLAZINE 500MG ER TAB PO ONE (08:09)
[2024-11-09 08:15] LABS: BASO % 0.4 % (0.0-1.0); EOS # 0.2 10^3/uL (0.0-0.5); EOS % 1.6 % (0.0-3.0); HEMATOCRIT 36.9 % (42.0-52.0); HEMOGLOBIN 12.3 g/dl (13.5-17.5); LYMPH # 1.8 10^3/uL (1.5-5.0); LYMPH % 19.5 % (24.0-44.0); MEAN CORPUSCULAR HEMOGLOBIN 29.9 pg (27.0-33.0); MEAN CORPUSCULAR HGB CONC 33.3 g/dl (32.0-36.5); MEAN CORPUSCULAR VOLUME 89.8 fl (80.0-96.0); MONO # 1.3 10^3/uL (0.0-0.8); MONO % 13.8 % (2.0-8.0); NEUTROPHILS % 64.4 % (36.0-66.0); PLATELET COUNT, AUTOMATED 179 10^3/uL (150-450); RED BLOOD COUNT 4.11 10^6/uL (4.30-6.10); WHITE BLOOD COUNT 9.3 10^3/uL (4.0-10.0)
[2024-11-09 08:33] LABS: HEMOGLOBIN A1c 6.9 % (4.0-6.0)
[2024-11-09 08:45] LABS: ALBUMIN 2.9 G/DL (3.2-5.2); BILIRUBIN,TOTAL 0.8 MG/DL (0.3-1.2); CALCIUM LEVEL 8.2 MG/DL (8.3-10.6); CHOLESTEROL RISK RATIO 2.95 (<5); CK-MB VALUE MASS 1.1 NG/ML (<3.6); CREATININE FOR GFR 1.01 MG/DL (0.70-1.30); HDL CHOLESTEROL 54.2 MG/DL (>40); LDL CHOLESTEROL 84.6 MG/DL (<100); NON-HDL-C 105.8 MG/DL; POTASSIUM SERUM 4.7 MMOL/L (3.5-5.1); TOTAL PROTEIN 6.8 G/DL (5.7-8.2)
[2024-11-09 08:48] LABS: MB/CK RELATIVE INDEX 0.59 (< OR =4)
[2024-11-09] MEDS ORDERED: NALOXONE INJ 0.4MG/1ML VIAL IV PRN (13:05)
[2024-11-09] MEDS ORDERED: MORPHINE 2 MG/ML 1ML VIAL IV PRN (13:05)
[2024-11-09] MEDS ORDERED: GLUCOSE 4 GM CHEW PO PRN (13:10)
[2024-11-09] MEDS ORDERED: DEXTROSE 50% 50ML SYRINGE IV PRN (13:10)
[2024-11-09] MEDS ORDERED: GLUCAGON INJ 1MG VIAL SC PRN (13:10)
[2024-11-09 21:58] VITALS: BP 121/64; TEMP 98.2; O2SAT 94
[2024-11-10] MEDS ORDERED: ATORVASTATIN 20 MG TAB PO SCH (09:00)
[2024-11-10] MEDS ORDERED: ASPIRIN 81MG CHEW TABLET PO SCH (09:00)
== END 2024-11-09 21:59 | disposition short-term general hospital (02) ==
LOC: EDBD 19:44 → M ED 19:44
DX: I21.4 Non-ST elevation (NSTEMI) myocardial infarction (principal); I44.4 Left anterior fascicular block; I45.2 Bifascicular block; I45.10 Unspecified right bundle-branch block; I10 Essential (primary) hypertension; E11.9 Type 2 diabetes mellitus without complications; E78.5 Hyperlipidemia, unspecified; K21.9 Gastro-esophageal reflux disease without esophagitis; J44.9 Chronic obstructive pulmonary disease, unspecified; F41.9 Anxiety disorder, unspecified; F32.A Depression, unspecified; F43.10 Post-traumatic stress disorder, unspecified; F90.9 Attention-deficit hyperactivity disorder, unspecified type; N40.0 Benign prostatic hyperplasia without lower urinary tract symptoms; Z88.8 Allergy status to other drugs, medicaments and biological substances; Z79.52 Long term (current) use of systemic steroids; Z79.4 Long term (current) use of insulin; Z79.899 Other long term (current) drug therapy; R06.02 Shortness of breath; I51.7 Cardiomegaly; I70.0 Atherosclerosis of aorta; Z87.891 Personal history of nicotine dependence
CPT/HCPCS: 71045; 71275; 76705; 80048; 80053; 80061; 80076; 82150; 82550; 82553; 83036; 83690; 83880; 84484; 85025; 85730; 93005; 93041; 93306; 94760; 96365; 96366; 96375; 96376; 99285; J2405; Q9967

== ENCOUNTER → 2024-11-08 | Outpatient (REF) | payer MEDICARE, MEDICAID ==
[~2024-11-08] MED LIST changes: +BISA10SU27 PR; -BUPR-597 PO; +BUPR-766 PO; +FLEEENE12 PR; -FLOM0.4C39 PO; +GABA-1490 PO; +GLUCLIQ37 PO; +GUAI600T54 PO; +INSULADS INJ; +IPRA0.00 INH; +LACT20EL PO; +MAGN400O73 PO; +MELA5CAP2 PO; +METH36TA13 PO; -METH36TA5 PO; +NICO21DI31 TOP; +POLY17PO18 PO; +SANT250O8 TOP; +SENN1TAB96 PO; +SPIR-10 PO; +TAMS-18 PO; +TAMS1CAP17 PO; +VITATAB73 PO
== END ==
PROVIDERS: ATTEND Physician Assistant
DX: R06.02 Shortness of breath (principal); I51.7 Cardiomegaly; I70.0 Atherosclerosis of aorta

== ENCOUNTER → 2024-11-08 | Outpatient (REF) ==
[2024-11-08 16:51] LABS: HEMATOCRIT 37.7 % (42.0-52.0); HEMOGLOBIN 12.4 g/dl (13.5-17.5); MEAN CORPUSCULAR HEMOGLOBIN 29.9 pg (27.0-33.0); MEAN CORPUSCULAR HGB CONC 32.9 g/dl (32.0-36.5); MEAN CORPUSCULAR VOLUME 90.8 fl (80.0-96.0); PLATELET COUNT, AUTOMATED 192 10^3/uL (150-450); RED BLOOD COUNT 4.15 10^6/uL (4.30-6.10); WHITE BLOOD COUNT 9.5 10^3/uL (4.0-10.0)
[2024-11-08 17:56] LABS: CK-MB VALUE MASS 2.4 NG/ML (<3.6)
[2024-11-08 17:58] LABS: CALCIUM LEVEL 8.7 MG/DL (8.3-10.6); CREATININE FOR GFR 0.96 MG/DL (0.70-1.30); POTASSIUM SERUM 4.3 MMOL/L (3.5-5.1)
[2024-11-08 18:11] LABS: MB/CK RELATIVE INDEX 0.95 (< OR =4)
== END ==
PROVIDERS: ATTEND Physician Assistant
DX: I50.9 Heart failure, unspecified (principal)

== ENCOUNTER → 2024-11-15 | Outpatient (REF) ==
[~2024-11-15] MED LIST changes: +BISA10SU27 PR; +FLEEENE12 PR; +GABA-1490 PO; +GLUCLIQ37 PO; +GUAI600T54 PO; +INSULADS INJ; +IPRA0.00 INH; +LACT20EL PO; +MAGN400O73 PO; +MELA5CAP2 PO; +NICO21DI31 TOP; +POLY17PO18 PO; +SANT250O8 TOP; +SENN1TAB96 PO; +SPIR-10 PO; +TAMS1CAP17 PO; +VITATAB73 PO
== END ==
PROVIDERS: ATTEND Internal Medicine
DX: E11.9 Type 2 diabetes mellitus without complications (principal); Z53.8 Procedure and treatment not carried out for other reasons

== ENCOUNTER 2024-11-26 13:07 | Emergency (ER) | payer MEDICARE, MEDICAID ==
[~2024-11-26 13:07] MED LIST changes: -ALPH600C PO; +ALPH600C2 PO
[2024-11-26 13:29] VITALS: BP 119/64; TEMP 99.5; O2SAT 96
[2024-11-26] MEDS ORDERED: OXYC1TAB23 PO (16:54)
== END 2024-11-26 17:36 | disposition home or self-care (01) ==
LOC: EDBD 13:07 → M ED 13:07
DX: M25.511 Pain in right shoulder (principal); E11.9 Type 2 diabetes mellitus without complications; G47.30 Sleep apnea, unspecified; Z88.8 Allergy status to other drugs, medicaments and biological substances; Z79.52 Long term (current) use of systemic steroids; Z79.899 Other long term (current) drug therapy; Z79.4 Long term (current) use of insulin

== ENCOUNTER → 2024-11-29 | Outpatient (REF) ==
[~2024-11-29] MED LIST changes: +OXYC1TAB23 PO
[2024-11-29 08:36] LABS: HEMATOCRIT 33.6 % (42.0-52.0); HEMOGLOBIN 10.7 g/dl (13.5-17.5); MEAN CORPUSCULAR HEMOGLOBIN 28.5 pg (27.0-33.0); MEAN CORPUSCULAR HGB CONC 31.8 g/dl (32.0-36.5); MEAN CORPUSCULAR VOLUME 89.4 fl (80.0-96.0); PLATELET COUNT, AUTOMATED 284 10^3/uL (150-450); RED BLOOD COUNT 3.76 10^6/uL (4.30-6.10); WHITE BLOOD COUNT 10.1 10^3/uL (4.0-10.0)
[2024-11-29 09:10] LABS: BLOOD UREA NITROGEN 23 MG/DL (9-23); CALCIUM LEVEL 9.2 MG/DL (8.3-10.6); CARBON DIOXIDE LEVEL 28 MMOL/L (20-31); CHLORIDE LEVEL 98 MMOL/L (98-107); GLOMERULAR FILTRATION RATE > 90.0 (>42); GLUCOSE, FASTING 134 MG/DL (74-106); POTASSIUM SERUM 5.1 MMOL/L (3.5-5.1); SODIUM LEVEL 136 MMOL/L (136-145)
== END ==
PROVIDERS: ATTEND Physician Assistant
DX: I50.9 Heart failure, unspecified (principal)

== ENCOUNTER → 2024-11-30 | Outpatient (REF) | PROVIDERS: ATTEND Physician Assistant | DX: I50.9 Heart failure, unspecified (principal); Z53.8 Procedure and treatment not carried out for other reasons ==

== ENCOUNTER → 2024-12-01 | Outpatient (REF) | PROVIDERS: ATTEND Internal Medicine | DX: R14.0 Abdominal distension (gaseous) (principal) ==

== ENCOUNTER → 2025-01-17 | Outpatient (REF) | payer MEDICARE, MEDICAID | PROVIDERS: ATTEND Physician Assistant | DX: R07.9 Chest pain, unspecified (principal) ==

== ENCOUNTER → 2025-01-18 | Outpatient (REF) | payer MEDICARE, MEDICAID ==
[2025-01-18 15:16] LABS: PLATELET COUNT, AUTOMATED 170 10^3/uL (150-450)
[2025-01-18 15:37] LABS: CK-MB VALUE MASS 6.3 NG/ML (<3.6)
[2025-01-18 15:41] LABS: CALCIUM LEVEL 9.1 MG/DL (8.3-10.6); CARBON DIOXIDE LEVEL 24.0 MMOL/L (20-31); CHLORIDE LEVEL 100.0 MMOL/L (98-107); CREATININE FOR GFR 1.15 MG/DL (0.70-1.30); GLOMERULAR FILTRATION RATE 68.5 (>42); POTASSIUM SERUM 5.3 MMOL/L (3.5-5.1); SODIUM LEVEL 139.0 MMOL/L (136-145)
[2025-01-18 15:45] LABS: CPK CREATINE PHOSPHOKINASE 269.0 U/L (46-171); MB/CK RELATIVE INDEX 2.34 (< OR =4)
== END ==
PROVIDERS: ATTEND Physician Assistant
DX: R07.9 Chest pain, unspecified (principal)

== ENCOUNTER → 2025-01-19 | Outpatient (REF) | payer MEDICARE, MEDICAID ==
[2025-01-19 09:13] LABS: PLATELET COUNT, AUTOMATED 199 10^3/uL (150-450)
[2025-01-19 09:36] LABS: CALCIUM LEVEL 9.4 MG/DL (8.3-10.6); CARBON DIOXIDE LEVEL 27.0 MMOL/L (20-31); CHLORIDE LEVEL 105.0 MMOL/L (98-107); CREATININE FOR GFR 1.07 MG/DL (0.70-1.30); GLOMERULAR FILTRATION RATE 74.7 (>42); POTASSIUM SERUM 5.1 MMOL/L (3.5-5.1); SODIUM LEVEL 143.0 MMOL/L (136-145)
== END ==
PROVIDERS: ATTEND Internal Medicine
DX: E11.9 Type 2 diabetes mellitus without complications (principal); I50.9 Heart failure, unspecified

== ENCOUNTER → 2025-01-25 | Outpatient (REF) | payer MEDICARE, MEDICAID | PROVIDERS: ATTEND Physician Assistant | DX: I50.9 Heart failure, unspecified (principal) ==

== ENCOUNTER → 2025-01-26 | Outpatient (REF) | payer MEDICARE, MEDICAID ==
[2025-01-26 10:30] LABS: BASO # 0.1 10^3/uL (0.0-0.2); BASO % 1.3 % (0.0-1.0); EOS # 0.2 10^3/uL (0.0-0.5); EOS % 4.3 % (0.0-3.0); LYMPH # 1.8 10^3/uL (1.5-5.0); LYMPH % 32.3 % (24.0-44.0); MONO # 0.7 10^3/uL (0.0-0.8); MONO % 12.2 % (2.0-8.0); NEUTROPHILS # 2.8 10^3/uL (1.5-8.5); NEUTROPHILS % 49.7 % (36.0-66.0); PLATELET COUNT, AUTOMATED 186 10^3/uL (150-450)
[2025-01-26 11:08] LABS: CALCIUM LEVEL 9.1 MG/DL (8.3-10.6); CARBON DIOXIDE LEVEL 29 MMOL/L (20-31); CHLORIDE LEVEL 102 MMOL/L (98-107); CREATININE FOR GFR 0.89 MG/DL (0.70-1.30); GLOMERULAR FILTRATION RATE > 90.0 (>42); POTASSIUM SERUM 4.4 MMOL/L (3.5-5.1); SODIUM LEVEL 145 MMOL/L (136-145)
== END ==
PROVIDERS: ATTEND Internal Medicine
DX: R60.9 Edema, unspecified (principal); I50.9 Heart failure, unspecified

== ENCOUNTER → 2025-02-09 | Outpatient (REF) | payer MEDICARE, MEDICAID ==
[~2025-02-09] MED LIST changes: +SENN-225 PO; -SENO8.6T5 PO
[2025-02-09 09:23] LABS: PLATELET COUNT, AUTOMATED 176 10^3/uL (150-450)
[2025-02-09 09:51] LABS: CALCIUM LEVEL 8.9 MG/DL (8.3-10.6); CARBON DIOXIDE LEVEL 28 MMOL/L (20-31); CHLORIDE LEVEL 103 MMOL/L (98-107); CREATININE FOR GFR 0.90 MG/DL (0.70-1.30); GLOMERULAR FILTRATION RATE > 90.0 (>42); POTASSIUM SERUM 4.8 MMOL/L (3.5-5.1); SODIUM LEVEL 141 MMOL/L (136-145)
== END ==
PROVIDERS: ATTEND Internal Medicine
DX: R06.02 Shortness of breath (principal)

== ENCOUNTER → 2025-02-14 | Outpatient (REF) | payer MEDICARE, MEDICAID | PROVIDERS: ATTEND Internal Medicine | DX: E11.9 Type 2 diabetes mellitus without complications (principal); Z53.8 Procedure and treatment not carried out for other reasons ==

== ENCOUNTER → 2025-03-11 | Outpatient (CLI) | payer MEDICARE, MEDICAID ==
[~2025-03-11] MED LIST changes: +PROHANCE 279.3MG/ML 15ML VIAL As Ordered ONE; +PROHANCE 279.3MG/ML 5ML VIAL As Ordered ONE
== END ==
LOC: M RAD 10:09
PROVIDERS: ATTEND Nurse Practitioner Family
DX: R97.20 Elevated prostate specific antigen [PSA] (principal)
CPT/HCPCS: 72197; A9576

== ENCOUNTER → 2025-06-13 | Outpatient (CLI) | payer MEDICARE, MEDICAID ==
[~2025-06-13] MED LIST changes: -PROHANCE 279.3MG/ML 15ML VIAL As Ordered ONE; -PROHANCE 279.3MG/ML 5ML VIAL As Ordered ONE
== END ==
LOC: M RAD 11:09
PROVIDERS: ATTEND Physician Assistant
DX: S91.331A Puncture wound without foreign body, right foot, initial encounter (principal); I70.201 Unspecified atherosclerosis of native arteries of extremities, right leg; X58.XXXA Exposure to other specified factors, initial encounter; Y92.9 Unspecified place or not applicable; Y99.9 Unspecified external cause status

== ENCOUNTER → 2025-06-22 | Outpatient (POV) | payer MEDICARE ==
[~2025-06-22] MED LIST changes: +ASPI81TA26 PO; +CLOP75TA99 PO; +ELIQ2.5T PO
== END ==
LOC: M IRPOV 10:30
PROVIDERS: ATTEND Radiology Diagnostic Radiology
DX: E11.51 Type 2 diabetes mellitus with diabetic peripheral angiopathy without gangrene (principal); L97.412 Non-pressure chronic ulcer of right heel and midfoot with fat layer exposed; I25.2 Old myocardial infarction; Z79.4 Long term (current) use of insulin; Z79.82 Long term (current) use of aspirin; Z79.899 Other long term (current) drug therapy; Z80.0 Family history of malignant neoplasm of digestive organs; Z80.1 Family history of malignant neoplasm of trachea, bronchus and lung; Z82.49 Family history of ischemic heart disease and other diseases of the circulatory system; Z83.3 Family history of diabetes mellitus; Z88.8 Allergy status to other drugs, medicaments and biological substances; Z89.512 Acquired absence of left leg below knee; Z95.1 Presence of aortocoronary bypass graft; Z96.1 Presence of intraocular lens

== ENCOUNTER → 2025-06-30 | Outpatient (CLI) | payer MEDICARE, MEDICAID ==
[~2025-06-30] VITALS: Ht 175.3 cm; Wt 83.9 kg
[~2025-06-30] MED LIST changes: +ACETAMINOPHEN 325 MG TAB PO PRN; +NS (Normal Saline) 0.9% 1,000 ML IV SCH; +ONDANSETRON 4MG/2ML VIAL IV PRN; +PERCOCET 5MG/325MG TAB PO PRN
[2025-06-30 12:25] VITALS: TEMP 98
[2025-06-30] MEDS: MIDAZOLAM INJ 2 MG/2 ML VIAL IV PRN (13:30)
[2025-06-30] MEDS: NS (Normal Saline) 0.9% 1,000 ML IV SCH (13:31)
[2025-06-30] MEDS: HEPARIN 1,000 UNITS/ML 10 ML VIAL (FOR RADIOLOGY & DIALYSIS ONLY) IV PRN (13:50)
[2025-06-30] MEDS: MIDAZOLAM INJ 2 MG/2 ML VIAL IV STA (14:41)
[2025-06-30] MEDS: LIDOCAINE 1% MDV 20 ML VIAL SC SCH (16:36)
[2025-06-30 16:45] VITALS: BP 139/80; O2SAT 100
[2025-06-30] MEDS: ISOVUE-300 61% 100 ML VIAL IV SCH (16:49)
[2025-06-30] MEDS: ASPIRIN 325 MG TAB PO ONE (17:20)
[2025-06-30] MEDS: CLOPIDOGREL 75 MG TAB PO STA (17:21)
== END ==
LOC: M IRPRO 12:08
PROVIDERS: ATTEND Radiology Diagnostic Radiology
DX: I70.201 Unspecified atherosclerosis of native arteries of extremities, right leg (principal); R09.89 Other specified symptoms and signs involving the circulatory and respiratory systems
CPT/HCPCS: 37230; 76937; 93975; 99152; 99153; C1769; C1874; C1886; C1887; J2250; J3010; Q9967